=== PATIENT | male | born 1970 | race Caucasian/White ===

== ENCOUNTER 2019-08-13 13:06 | Emergency (ER) | payer OTHER, SELFPAY ==
[2019-08-13 13:06] VITALS: BP 115/73; PULSE 76; RESP 18; TEMP 36.6; O2SAT 97; BMI 31.7
--- NOTE | 2019-08-13 13:16 | EKG12_ITS ---
Test Reason : CP Blood Pressure : / mmHG Vent. Rate : 069 BPM Atrial Rate : 069 BPM P-R Int : 158 ms QRS Dur : 094 ms QT Int : 388 ms P-R-T Axes : 033 -20 014 degrees QTc Int : 415 ms Normal sinus rhythm Normal ECG Confirmed by JANINA WHITMORE ([id number]), electronic news gathering editor HARLEEN BOOKER ([id number]) on 08/18/2019 9:23:01 AM Referred By: LISET Confirmed By:JANINA WHITMORE
[2019-08-13 13:28] LABS: Absolute Lymphocyte Count 1.64 X10^3/uL (0.83-4.51); Absolute Neutrophil Count 5.9 X10^3/uL (2.0-7.7); Basophil# 0.02 X10^3/uL; Basophil% 0.2 % (0-1); Eosinophil# 0.02 X10^3/uL; Eosinophils% 0.2 % (0-5); Hematocrit 46.7 % (40-54); Hemoglobin 15.9 g/dL (13.0-16.5); Lymphocyte # 1.64 X10^3/ul (4.0); Lymphocyte % 19.7 % (19-41); Mean Corpuscular Hgb 31.1 pg (27.0-32.0); Mean Corpuscular Volume 91.2 fL (80-94); Monocyte% 8.4 % (0-10); NRBC Flagged by Analyzer 0 % (0-5); Neutrophil # 5.92 X10^3/uL (2.7-7.7); Neutrophil % 71.1 % (47-70); Platelet Count 209 K/mm3 (150-450); RBC Distribution Width CV 12.4 % (11.6-14.6); RBC Distribution Width SD 41.4 fl (35.1-43.9); Red Blood Count 5.12 M/mm3 (4.6-6.2); White Blood Count 8.3 K/mm3 (4.4-11.0)
--- NOTE | 2019-08-13 13:31 | RAD_ITS ---
STUDY: X-RAY CHEST REASON FOR EXAM: Male, 49 years old. Chest pain. TECHNIQUE: PA and lateral views of the chest. COMPARISON: None. FINDINGS: EKG electrodes are seen. The lungs are clear and expanded. Scattered calcified granulomas. There is no demonstrated pleural abnormality. Normal size heart. Normal mediastinum and deion. Normal visualized pulmonary arteries. Normal visualized aortic arch and descending thoracic aorta. Normal visualized thoracic spine. Normal visualized ribs, clavicles, and shoulders. There is no demonstrated abnormality of the visualized soft tissue structures of the upper abdomen. RAD/Chest PA and Lateral IMPRESSION: Normal x-ray examination of the chest. Electronically Signed: Kevin Conde, at 14:21 EST , Service support ,
--- NOTE | 2019-08-13 13:41 | ED.VIS.GEN ---
History of Present Illness Chief Complaint: Chest Pain Informant: Patient Onset: Yesterday Context: Sudden Onset Timing: Lasts - 30 seconds Current Severity: - Maximum Severity: Moderate - Gone Narrative: The patient presents to the emergency department at referral from his primary care physician. The patient was in his normal state of health. He states last night, he had sudden onset substernal chest heaviness that lasted about 30 seconds. He states he felt mildly nauseated and short of breath. He states it did not radiate to his neck or to his arm. He is never had pain like this before. He is not currently on any medications. He does admit to family history of heart disease, but no history himself. He denies any exertional chest pain, recent travel, or history of pulmonary embolus. He is otherwise been in his normal state of health. Prior similar symptoms: No Recent Illness/Hospitalization: No Past Medical History - Allergies and Home Meds Allergies/Adverse Reactions: Allergies No Known Allergies Allergy (Verified 08/13/19 13:09) Primary Care Physician: Carlos Donovan III, MD [Primary Care Provider] - Prior records reviewed: Yes Past Medical History: None Surgical History: noncontributory Smoking Status: Former smoker Review of Systems General: Denies: Chills, Fever, Sweats Eyes: Denies: Visual changes - bilaterally, Diplopia ENT: Denies: Rhinorrhea, Sore throat Cardiovascular: Reports: Chest pain. Denies: Palpitations Respiratory: Denies: Dyspnea, Cough, Dyspnea on exertion Gastrointestinal: Denies: Abdominal pain, Nausea, Vomiting, Diarrhea, Melena, Hematochezia Genitourinary: Denies: Dysuria, Hematuria, Frequency Musculoskeletal: Denies: Back pain, Extremity Pain Skin: Denies: Rash, Wounds Neurological: Denies: Headache, Weakness, Numbness Physical Exam Vital Signs/Narrative: Vital Signs Temp Pulse Resp BP Pulse Ox 08/13/19 13:06 97.8 F 76 18 115/73 97 Inital Vital Signs reviewed: Yes General: Well nourished, Well developed, No Acute Distress Head: Normocephalic, Atraumatic Eyes: Perrl, EOMI ENT: Moist mucous membranes, No rhinorrhea Neck: Supple, Nontender Cardiovascular: Regular rate, Regular rhythm, No murmurs Respiratory: No distress, CTA bilaterally, Chest nontender Abdomen: Soft, Nontender, Nondistended, Normal bowel sounds Back: Nontender, Normal Inspection Extremities: Nontender, No edema Skin: Normal color, No rash Neurological: Alert, Oriented x3, Cranial nerves II-XII grossly intact, Normal Strength, Normal Sensation Psychological: Normal affect, Normal Mood Diagnostic/Tx/Re-eval Chest X-Ray - ED: 2 View, Normal, Heart, Lungs, Mediastinum, Bony Structures, No Infiltrates Clinical Impression(s) from Imaging Studies Chest X-Ray 08/13/19 13:31 IMPRESSION: Normal x-ray examination of the chest. Electronically Signed: Kevin Conde, at 14:21 EST , Service support , Abnormal Lab Results 08/13/19 08/13/19 13:20 13:20 WBC 8.3 RBC 5.12 Hgb 15.9 Hct 46.7 MCV 91.2 MCH 31.1 MCHC 34.0 RDW Std Deviation 41.4 RDW Coeff of Jelena 12.4 Plt Count 209 MPV 11.0 Immature Gran % (Auto) 0.400 Neut % (Auto) 71.1 H Lymph % (Auto) 19.7 [place] % (Auto) 8.4 Eos % (Auto) 0.2 Baso % (Auto) 0.2 Absolute Neuts (auto) 5.9 Absolute Lymphs (auto) 1.64 Nucleated RBC % 0 Sodium 139 Potassium 3.7 Chloride 107 Carbon Dioxide 25.0 Anion Gap 7 BUN 19 H Creatinine 1.15 Estim Creat Clear Calc 78.56 Est GFR (MDRD) Af Amer 87 Est GFR (MDRD) Non-Af 72 BUN/Creatinine Ratio 16.5 Glucose 91 Calcium 9.0 Troponin I < 0.015 - Rhythm Strip Rhythm Strip: Sinus Rhythm Rate: 80 Ectopy: None - EKG Initial EKG Interpretation: Sinus Rhythm, No Acute Injury Pattern Prior: No Prior - Medical Decision Making The patient presents to the emergency department with approximately 30 seconds of substernal chest pain that woke him from sleep. His pain is totally resolved. He denies any exertional tightness, exertional dyspnea, orthopnea, or leg swelling. He is never had pain like this before. His symptoms do seem atypical. EKG was obtained which showed no acute ischemia. Chest x-ray shows normal cardiac silhouette, no enlarged mediastinum, or other dangerous process. Initial cardiac enzymes are normal. The patient is low risk but not no risk. He was agreeable with a 3-hour troponin as his heart score is only 2. His repeat cardiac enzymes are normal. At this point time I do feel he is safe for outpatient follow-up for stress testing. He agrees with this plan of care and will return with any worsening symptoms. Impression 1. Chest pain ED Disposition - Plan for ED Patient: Instructions: CHEST PAIN, Uncertain Cause Referrals: Carlos Donovan III, MD [Primary Care Provider] -
[2019-08-13 13:45] LABS: Anion Gap 7 (5-15); BUN 19 mg/dL (7-18); BUN/Creat Ratio 16.5 RATIO (10-20); Chloride 107 mmol/L (98-107); Creatinine, Serum 1.15 mg/dL (0.70-1.30); EST Glomerular Filtration Rate 72 mL/min (>60); Est Glom Filt Rate - Afr Amer 87 mL/min (>60); Estimated Creatinine Clearance 78.56 ml/min; Glucose 91 mg/dL (74-106); Potassium 3.7 mmol/L (3.5-5.1); Sodium Level 139 mmol/L (136-145)
--- NOTE | 2019-08-13 14:03 | ED.RN ---
PATIENT STATES THAT HE TOOK PAIN EASE PRIOR TO COMING TO ED. INGREDIENTS LISTED 250 MG ASA PER TABLET. PATIENT TOOK TWO TABLETS.
[2019-08-13 14:06] VITALS: BP 116/82; PULSE 69; RESP 18; O2SAT 98
[2019-08-13 16:12] VITALS: BP 120/79; PULSE 65; RESP 17; O2SAT 97
[2019-08-13 16:57] VITALS: BP 120/66; PULSE 56; RESP 18; O2SAT 98
== END 2019-08-13 16:58 | disposition home or self-care (01) ==
LOC: ED 13:34
PROVIDERS: Emergency Provider Emergency Medicine; Family Provider Family Medicine; PCP Family Medicine
DX: R07.9 Chest pain, unspecified (principal); R06.02 Shortness of breath; R11.0 Nausea; Z82.49 Family history of ischemic heart disease and other diseases of the circulatory system; Z87.891 Personal history of nicotine dependence
CPT/HCPCS: 71046; 80048; 84484; 85025; 93005; 99285; A4216

== ENCOUNTER → 2021-06-14 | Outpatient (CLI) | payer OTHER, SELFPAY | END | disposition home or self-care (01) | LOC: LABSPEC 07:46 | PROVIDERS: PCP Family Medicine; Referring Provider Physician Assistant; Visit Provider Physician Assistant | DX: U07.1 COVID-19 (principal) | CPT/HCPCS: 87635; U0005; U0003 ==

== ENCOUNTER 2021-11-19 14:48 | Emergency (ER) | payer OTHER, SELFPAY ==
[2021-11-19 14:49] VITALS: BP 144/90; PULSE 82; RESP 18; TEMP 37; O2SAT 97; BMI 30.1
--- NOTE | 2021-11-19 15:29 | EKG12_ITS ---
Test Reason : CP Blood Pressure : / mmHG Vent. Rate : 072 BPM Atrial Rate : 072 BPM P-R Int : 164 ms QRS Dur : 096 ms QT Int : 372 ms P-R-T Axes : 040 -12 020 degrees QTc Int : 407 ms Normal sinus rhythm Normal ECG Confirmed by ALVERTO BEE MD ([id number]), medical transcription editor LITO SHEIKH ([id number]) on 11/22/2021 11:00:57 AM Referred By: NANCY/JESSE Confirmed By:ALVERTO BEE MD
--- NOTE | 2021-11-19 15:35 | RAD_ITS ---
STUDY: X-RAY CHEST REASON FOR EXAM: Male, 51 years old. chest pain TECHNIQUE: Single AP portable view of the chest. COMPARISON: 08/13/2019 FINDINGS: The lungs are clear and expanded. There is no demonstrated pleural abnormality. Normal size heart. Normal mediastinum and deion. Normal visualized pulmonary arteries. Normal visualized aortic arch and descending thoracic aorta. Normal visualized thoracic spine. Normal visualized ribs, clavicles, and shoulders. There is no demonstrated abnormality of the visualized soft tissue structures of the upper abdomen. RAD/Chest 1 View (Portable) IMPRESSION: Normal x-ray examination of the chest. Electronically Signed: Erwin Hardy MD at 15:51 EST ,
--- NOTE | 2021-11-19 15:45 | ED.VIS.CHEST ---
HPI History of Present Illness Chief Complaint: Chest Pain Informant: patient Onset/Context/Timing Onset: Today Activity at onset: sudden Timing: Intermittent and Lasts (Few seconds) Quality: Positive for Sharp Location: Left Parasternal Worsened By: Nothing Relieved By: Nothing Associated Symptoms: Positive for Cough and Acid Reflux; Negative for Nausea, Vomiting, Diaphoresis, Dyspnea, Fever, Lightheadedness and Palpitations Narrative Narrative: Patient presents with chest pain that has been intermittent today. Patient states it is also been intermittent over the past couple days but it is more frequent today. Patient states that last a few seconds when it comes on. Patient describes it as sharp. Patient states the pain is over the left parasternal area. Patient states he has had occasional pain in his left arm. Patient describes his arm pain as aching. Patient admits to a mild cough. Patient also admits to some reflux symptoms. Patient denies any nausea or vomiting. Patient denies any shortness of breath or diaphoresis. CVD Risk Factors: Negative for Hypertension, Diabetes, Hypercholesterolemia, Family History 1' </=55 and Smoking PE Risk Factors: Negative for Recent Travel/Surgery, Recent Immobilization, Prior DVT or PE, Cancer and OCP + Smoking + >/=35 PFSH PFSH Medical History no medical history no medical history Home Medications NK 08/13/19 [History Last Taken Unknown] Allergy/AdvReac Type Severity Reaction Status Date / Time No Known Allergies Allergy Verified 11/19/21 14:50 Surgical History History of herniorrhaphy Social History Smoking Status: Never smoker ROS ROS ED Constitutional Constitutional ED: Denies chills or fever(s) Eyes Eyes: Denies blurry vision or change in vision ENT ENT ED: Denies rhinorrhea or sore throat Cardiovascular Cardiovascular: Reports chest pain; Denies palpitations Respiratory/Chest Respiratory/Chest: Reports cough; Denies dyspnea Gastrointestinal Gastrointestinal: Reports nausea; Denies abdominal pain or vomiting Genitourinary Genitourinary ED: Denies dysuria or hematuria Musculoskeletal Musculoskeletal: Reports neck pain; Denies back pain Integumentary Denies abscess or rash Neurologic Neurologic: Reports headache(s); Denies weakness Allergic/Immunologic Allergic/Immunologic ED: Denies mouth swelling or urticaria EXAM Physical Exam Const Vital Signs: 11/19/21 14:49 11/19/21 15:52 11/19/21 15:53 Temperature 98.6 F Temperature Source Temporal Pulse Rate 82 74 Respiratory Rate 18 19 H Respiratory Effort Respiratory Pattern Blood Pressure 144/90 H 141/84 H Blood Pressure Mean 108 103 Pulse Ox 97 95 Oxygen Delivery Method Room Air Room Air Room Air 11/19/21 15:54 11/19/21 16:00 11/19/21 18:00 Temperature Temperature Source Pulse Rate 74 57 L Respiratory Rate 19 H 16 Respiratory Effort Normal Respiratory Pattern Normal Blood Pressure 141/84 H 147/84 H Blood Pressure Mean 103 105 Pulse Ox 95 97 Oxygen Delivery Method Room Air Room Air Positive well nourished and well developed General Appearance ED: well developed and NAD HEENT normocephalic and atraumatic Eyes PERRL and EOMs intact bilaterally Neck supple and no JVD Chest Wall palpation of chest normal Resp normal respiratory effort and clear to auscultation bilaterally Effort and Inspection: Negative for respiratory distress Cardio regular rate, regular rhythm and no murmurs GI normal to inspection, nondistended, normoactive bowel sounds, soft to palpation, non-tender and non-distended Extremity normal to inspection General Extremety ED: Negative for edema or tenderness General Extremity: Negative for edema Neuro oriented x3, CN's II-XII intact bilaterally and no sensory deficits noted Sensorium / Orientation: awake and alert Motor Exam: strength 5/5 throughout Psych mental status grossly normal Heart Score History: Slightly/Non-Suspicious ECG: Normal Age: >45 - <65 years Risk Factors: No Risk Factors Troponin: </= Normal Limit Score: 1 MDM MDM MDM Narrative Medical decision making narrative: Patient was given aspirin here. EKG was obtained. On my interpretation, it showed a normal sinus rhythm with a rate of 72. [place] interval, QRS interval, and QTc intervals were all normal. [place] was normal. There are no acute ST or T wave changes. CBC and basic metabolic profile were obtained and were within normal limits. PT with INR was within normal limits. Initial high-sensitivity troponin was normal at 5. 2-hour repeat high-sensitivity troponin was unchanged at 5. Portable 1 view chest x-ray was obtained. On my interpretation, lung duran are clear. There is normal cardiac silhouette. Bony thorax is normal. There is no acute process noted. Radiologist also interpreted the x-ray and agrees. Patient has a HEART score of 1. Patient was advised that this is low risk for acute cardiac event. Patient was instructed to follow-up with his primary care physician in 5 to 7 days for reevaluation. Patient understands and is agreeable with the plan. Patient was instructed return if worse in any way. All questions were answered. Lab Data Attestation: I reviewed the patient's lab results. Labs: Laboratory Results - last 24 hr 11/19/21 11/19/21 11/19/21 15:40 15:40 15:40 WBC 7.6 RBC 5.05 Hgb 16.1 Hct 46.0 MCV 91.1 MCH 31.9 MCHC 35.0 RDW Std Deviation 41.5 RDW Coeff of Jelena 12.4 Plt Count 219 MPV 10.4 Immature Gran % (Auto) 0.300 Neut % (Auto) 62.9 Lymph % (Auto) 26.8 [facility] % (Auto) 9.0 Eos % (Auto) 0.7 Baso % (Auto) 0.3 Absolute Neuts (auto) 4.8 Absolute Lymphs (auto) 2.05 Nucleated RBC % 0 PT 13.0 INR 1.0 Sodium 139 Potassium 3.8 Chloride 107 Carbon Dioxide 29.0 Anion Gap 3 L BUN 18 Creatinine 1.15 Estim Creat Clear Calc 79.35 Est GFR (MDRD) Af Amer 86 Est GFR (MDRD) Non-Af 71 BUN/Creatinine Ratio 15.7 Glucose 91 Calcium 9.3 Troponin I High Sens 5 11/19/21 18:04 WBC RBC Hgb Hct MCV MCH MCHC RDW Std Deviation RDW Coeff of Jelena Plt Count MPV Immature Gran % (Auto) Neut % (Auto) Lymph % (Auto) [facility] % (Auto) Eos % (Auto) Baso % (Auto) Absolute Neuts (auto) Absolute Lymphs (auto) Nucleated RBC % PT INR Sodium Potassium Chloride Carbon Dioxide Anion Gap BUN Creatinine Estim Creat Clear Calc Est GFR (MDRD) Af Amer Est GFR (MDRD) Non-Af BUN/Creatinine Ratio Glucose Calcium Troponin I High Sens 5 Radiography Chest X-Ray - ED: 1 View, Read by ED Physician, Read by Radiologist and Normal Diagnostic Testing: Clinical Impression(s) from Imaging Studies Chest X-Ray 11/19/21 15:35 IMPRESSION: Normal x-ray examination of the chest. Electronically Signed: Erwin Hardy MD at 15:51 EST , EKG Initial EKG: Attestation: I personally reviewed and interpreted this EKG as follows: Interpretation: Sinus Rhythm (72) and No Acute Injury Pattern Prior EKG tracings: available for review Prior: Unchanged (08/13/2019) Discharge Plan Triage Chief Complaint: Chest Pain ED Provider: Manav Guevara Dx/Rx/DC Orders Clinical Impression: Chest pain Instructions: ED Chest Pain, Uncertain Cause Prescriptions: No Action NK RF: 0 Primary Care Provider: Care Physician,No Primary Referrals: Colten Garcia MD [STAFF PHYSICIAN] - 5-7 Days Care Physician,No Primary [Primary Care Provider] - Disposition Disposition: Home, Self Care
[2021-11-19 15:53] VITALS: BP 141/84; PULSE 74; RESP 19; O2SAT 95
[2021-11-19 15:56] LABS: Absolute Lymphocyte Count 2.05 X10^3/uL (0.83-4.51); Absolute Neutrophil Count 4.8 X10^3/uL (2.0-7.7); Basophil# 0.02 X10^3/uL; Basophil% 0.3 % (0-1); Eosinophil# 0.05 X10^3/uL; Eosinophils% 0.7 % (0-5); Hemoglobin 16.1 g/dL (13.0-16.5); Lymphocyte # 2.05 X10^3/ul (0.83-4.51); Lymphocyte % 26.8 % (19-41); Mean Corpuscular Hgb 31.9 pg (27.0-32.0); Mean Corpuscular Volume 91.1 fL (80-94); Mean Platelet Vol. 10.4 fl (6.2-12.0); Monocyte# 0.69 X10^3/uL; NRBC Flagged by Analyzer 0 % (0-5); Neutrophil # 4.81 X10^3/uL (2.7-7.7); Neutrophil % 62.9 % (47-70); Platelet Count 219 K/mm3 (150-450); RBC Distribution Width CV 12.4 % (11.6-14.6); RBC Distribution Width SD 41.5 fl (35.1-43.9); Red Blood Count 5.05 M/mm3 (4.6-6.2); White Blood Count 7.6 K/mm3 (4.4-11.0)
[2021-11-19 16:00] VITALS: BP 141/84; PULSE 74; RESP 19; O2SAT 95
[2021-11-19 16:11] LABS: Anion Gap 3 (5-15); BUN 18 mg/dL (7-18); BUN/Creat Ratio 15.7 RATIO (10-20); Calcium,Total 9.3 mg/dL (8.5-10.1); Chloride 107 mmol/L (98-107); Creatinine, Serum 1.15 mg/dL (0.70-1.30); EST Glomerular Filtration Rate 71 mL/min (>60); Est Glom Filt Rate - Afr Amer 86 mL/min (>60); Estimated Creatinine Clearance 79.35 ml/min; Glucose 91 mg/dL (74-106); Potassium 3.8 mmol/L (3.5-5.1); Sodium Level 139 mmol/L (136-145); Troponin-I HS 5 pg/mL (3.0-78.0)
[2021-11-19] MEDS: Aspirin 81 MG TAB.CHEW 324 MG PO (16:43)
[2021-11-19 18:00] VITALS: BP 147/84; PULSE 57; RESP 16; O2SAT 97
[2021-11-19 18:35] LABS: Troponin-I HS 5 pg/mL (3.0-78.0)
[2021-11-19 19:10] VITALS: BP 128/81; PULSE 60; RESP 16; O2SAT 95
== END 2021-11-19 19:11 | disposition home or self-care (01) ==
PROVIDERS: Emergency Provider Emergency Medicine; Visit Provider Emergency Medicine
DX: R07.9 Chest pain, unspecified (principal); K21.9 Gastro-esophageal reflux disease without esophagitis; M79.602 Pain in left arm; M54.2 Cervicalgia; R05.9 Cough, unspecified
CPT/HCPCS: 71045; 80048; 84484; 85025; 85610; 93005; 99285; A4216

== ENCOUNTER 2023-09-05 05:18 | Observation (INO) | payer OTHER, SELFPAY ==
[2023-09-05] VITALS (8 sets, daily range): BP systolic 103–164; BP diastolic 65–88; PULSE 65–83; RESP 16–18; TEMP 36.6–37; O2SAT 93–99; BMI 31.5; BMI 33.5
--- NOTE | 2023-09-05 05:38 | EDS_ITS ---
HPI History of Present Illness Chief Complaint: Abd Pain Informant: patient and spouse/S.O. Narrative Narrative: 53-year-old male states that yesterday around noon he developed an epigastric discomfort radiating to his back. He states most of his discomfort does seem to be in the back. He notes some bloating and some anorexia. He states that he tried to eat some vegetables later in the day but nothing really sounds good. He was unable to get to sleep due to this discomfort. He notes inguinal hernia repair. He denies any known pancreatic or gallbladder disease. PFSH PFSH Home Medications NK 08/13/19 [History Last Taken Unknown] Allergy/AdvReac Type Severity Reaction Status Date / Time No Known Allergies Allergy Verified 09/05/23 05:19 Surgical History History of herniorrhaphy Social History Smoking Status: Never smoker ROS ROS ED Constitutional Constitutional ED: Denies chills, fever(s) or weight loss Eyes Eyes: Denies change in vision or diplopia ENT ENT ED: Denies ear pain, rhinorrhea or sore throat Cardiovascular Cardiovascular: Denies chest pain, orthopnea, palpitations or racing heartbeat Respiratory/Chest Respiratory/Chest: Denies cough, dyspnea or orthopnea Gastrointestinal Gastrointestinal: Reports abdominal pain and nausea; Denies diarrhea or vomiting Genitourinary Genitourinary ED: Denies dysuria, hematuria or urinary frequency Musculoskeletal Musculoskeletal: Reports back pain; Denies arthralgias or myalgias Integumentary Denies abscess or rash Neurologic Neurologic: Denies headache(s) or weakness Psychiatric Psychiatric: Denies anxiety, depression, suicidal ideation or suicidal thoughts Endocrine Endocrinology: Denies polydipsia, polyphagia or polyuria Allergic/Immunologic Allergic/Immunologic ED: Denies mouth swelling, tongue swelling or urticaria EXAM Physical Exam Const Vital Signs: 09/05/23 05:19 09/05/23 06:35 Temperature 98 F Temperature Source Temporal Pulse Rate 75 78 Respiratory Rate 18 16 Blood Pressure 164/88 H 136/75 H Blood Pressure Mean 113 95 Pulse Ox 99 98 Oxygen Delivery Method Room Air Positive well nourished and well developed General Appearance ED: well developed HEENT Reports normocephalic, head/scalp atraumatic and moist mucous membranes Eyes PERRL and EOMs intact bilaterally Neck no lymphadenopathy, supple and no JVD Resp normal respiratory effort and clear to auscultation bilaterally Cardio regular rate, regular rhythm and no murmurs GI Palpation: soft and tender epigastric and RUQ; Negative for splenomegaly or rebound tenderness present Back/Spine no CVA tenderness and normal ROM Extremity normal to inspection General Extremety ED: Negative for edema General Extremity: Negative for edema Neuro oriented x3 and CN's II-XII intact bilaterally Sensorium / Orientation: alert Motor Exam: strength 5/5 throughout Psych mental status grossly normal Mood & Affect: Negative for depressed or tearful Skin no rashes or lesions noted and no wounds MDM MDM MDM Narrative Medical decision making narrative: Bedside ultrasound performed by this physician reveals some mild tenderness over the gallbladder and some cholelithiasis. White count 13.5. Troponin is 9 lipase is 30 liver enzymes with no obstructive pattern. Glucose of 110. Patient received IV fluids morphine and Zofran. This improved his pain but came back. His EKG demonstrates a normal sinus rhythm. I do not believe this to be cardiac in nature. A CT of the abdomen and pelvis was ordered. History & Record Review Discussion w/independent historian: Patient Lab Data Attestation: I reviewed the patient's lab results. Labs: Laboratory Results - last 24 hr 09/05/23 05:45 WBC 13.5 H RBC 4.95 Hgb 15.3 Hct 45.4 MCV 91.7 MCH 30.9 MCHC 33.7 RDW Std Deviation 41.3 RDW Coeff of Jelena 12.4 Plt Count 212 MPV 10.5 Immature Gran % (Auto) 0.400 Neut % (Auto) 86.9 H Lymph % (Auto) 7.7 L [place] % (Auto) 4.7 Eos % (Auto) 0.1 Baso % (Auto) 0.2 Absolute Neuts (auto) 11.8 H Absolute Lymphs (auto) 1.04 Nucleated RBC % 0 Sodium 139 Potassium 4.0 Chloride 108 H Carbon Dioxide 25.0 Anion Gap 6 BUN 17 Creatinine 1.00 Estim Creat Clear Calc 89.22 Est GFR (MDRD) Af Amer 101 Est GFR (MDRD) Non-Af 84 BUN/Creatinine Ratio 17.1 Glucose 110 H Calcium 8.8 Total Bilirubin 0.60 Direct Bilirubin 0.14 AST 20 ALT 27 Alkaline Phosphatase 76 Troponin I High Sens 9 Total Protein 7.1 Albumin 3.6 Globulin 3.5 Lipase 30 EKG Initial EKG: Attestation: I personally reviewed and interpreted this EKG as follows: Comments: Normal sinus rhythm ventricular rate of 69 bpm Discharge Plan Triage Chief Complaint: Abd Pain ED Provider: Jon Leija Dx/Rx/DC Orders Prescriptions: No Action NK Primary Care Provider: Care Physician,No Primary Referrals: Care Physician,No Primary [Primary Care Provider] -
--- NOTE | 2023-09-05 05:41 | EKG12_ITS ---
Test Reason : DYSRHYTHMIA Blood Pressure : / mmHG Vent. Rate : 069 BPM Atrial Rate : 069 BPM P-R Int : 172 ms QRS Dur : 098 ms QT Int : 376 ms P-R-T Axes : 044 -12 026 degrees QTc Int : 402 ms Normal sinus rhythm Possible Left atrial enlargement Incomplete right bundle branch block Borderline ECG Confirmed by ROHIT ROMERO, ALVERTO ([id number]), subeditor BRENDA MCNEILL ([id number]) on 09/12/2023 8:09:03 AM Referred By: Confirmed By:ALVERTO BEE MD
[2023-09-05 05:53] LABS: Absolute Lymphocyte Count 1.04 X10^3/uL (0.83-4.51); Absolute Neutrophil Count 11.8 X10^3/uL (2.0-7.7); Basophil# 0.03 X10^3/uL; Basophil% 0.2 % (0-1); Eosinophil# 0.01 X10^3/uL; Eosinophils% 0.1 % (0-5); Hematocrit 45.4 % (40-54); Hemoglobin 15.3 g/dL (13.0-16.5); Lymphocyte # 1.04 X10^3/ul (0.83-4.51); Lymphocyte % 7.7 % (19-41); Mean Corp Hgb Conc 33.7 g/dL (32-36); Mean Corpuscular Hgb 30.9 pg (27.0-32.0); Mean Corpuscular Volume 91.7 fL (80-94); Mean Platelet Vol. 10.5 fl (6.2-12.0); Monocyte# 0.64 X10^3/uL; Monocyte% 4.7 % (0-10); NRBC Flagged by Analyzer 0 % (0-5); Neutrophil # 11.76 X10^3/uL (2.7-7.7); Neutrophil % 86.9 % (47-70); Platelet Count 212 K/mm3 (150-450); RBC Distribution Width CV 12.4 % (11.6-14.6); RBC Distribution Width SD 41.3 fl (35.1-43.9); Red Blood Count 4.95 M/mm3 (4.6-6.2); White Blood Count 13.5 K/mm3 (4.4-11.0)
[2023-09-05] MEDS: Morphine 4 MG/ML Syringe IV ×2 (05:54→07:07)
[2023-09-05] MEDS: Ondansetron 4 MG/2 ML Vial IV (05:54)
[2023-09-05] MEDS: 0.9% Normal Saline (1000mL) 1,000 ML 1000 ML IV (05:54)
[2023-09-05 06:11] LABS: AST(SGOT) 20 U/L (15-37); Alanine Aminotransfer ALT/SGPT 27 U/L (16-61); Albumin, Serum 3.6 g/dL (3.2-5.0); Alkaline Phosphatase 76 U/L (45-117); Anion Gap 6 (5-15); BUN 17 mg/dL (7-18); BUN/Creat Ratio 17.1 RATIO (10-20); Bilirubin, Direct 0.14 mg/dL (0.00-0.30); Calcium,Total 8.8 mg/dL (8.5-10.1); Chloride 108 mmol/L (98-107); EST Glomerular Filtration Rate 84 mL/min (>60); Est Glom Filt Rate - Afr Amer 101 mL/min (>60); Estimated Creatinine Clearance 89.22 ml/min; Globulin 3.5 g/dL (2.2-4.2); Glucose 110 mg/dL (74-106); Lipase 30 U/L (13-75); Protein, Total 7.1 g/dL (6.4-8.2); Sodium Level 139 mmol/L (136-145); Troponin-I HS 9 pg/mL (3.0-78.0)
--- NOTE | 2023-09-05 06:56 | CT_ITS ---
STUDY: CT ABDOMEN AND PELVIS WITH CONTRAST - URINARY TRACT REASON FOR EXAM: Male, 53 years old. Abdominal pain/back pain RADIATION DOSAGE (If Supplied By Facility): CTDIvol = ( 14.43 ) mGy, DLP = ( 1058.45 ) mGycm TECHNIQUE: IV 100mL Isovue-300 was administered. Transaxial images were obtained from the dome of the diaphragm to the symphysis pubis subsequent to intravenous contrast administration. Multiplanar coronal and sagittal images were reformatted. Individualized Dose Optimization Techniques Were Used For This CT. COMPARISON: No relevant prior comparison study available FINDINGS: There is a right lower lobe granuloma. The visualized portions of the heart are within normal limits. Normal liver. There are multiple gallstones. There is trace pericholecystic fluid. The gallbladder is distended. There is a benign calcified granuloma of the spleen. Normal pancreas. Normal bilateral adrenal glands. Normal visualized stomach. Normal small intestine. There are multiple colonic diverticula consistent with diverticulosis. The appendix is visualized and appears normal. Normal abdominal aorta. No retroperitoneal adenopathy. There is a nonobstructing 5 mm right renal calculus. There is a left renal cyst. Normal urinary bladder. Normal abdominal wall. Normal osseous structures. CT/Abdomen/Pelvis W IV Cont ONLY IMPRESSION: Cholelithiasis associated with a distended gallbladder and pericholecystic fluid, recommend right upper quadrant ultrasound for cannot exclude cholecystitis. Colonic diverticulosis. Nonobstructing 5 mm right renal calculus. Electronically Signed: Nohelia Gonsalez MD at 8:44 EST ,
[2023-09-05] MEDS: 0.9% Normal Saline (1000mL) 1,000 ML 125 ML IV (07:07)
--- NOTE | 2023-09-05 08:49 | US_ITS ---
INDICATION: Right upper quadrant pain EXAMINATION: Ultrasound US Abdomen Limited (quadrant) TECHNIQUE: Chong scale and color doppler imaging was performed of the right upper quadrant. COMPARISON: CT dated September 05, 2023 FINDINGS: LIVER: There is normal echotexture. No focal hepatic lesion. There is no free fluid. GALLBLADDER AND BILIARY TREE: There are stones and sludge within a distended gallbladder. There is a questionable calculus within the neck of the gallbladder or cystic duct. A sonographic Sauceda''s sign was not documented by the global recruiter. The proximal common bile duct measures 10 mm, which is dilated for the patient''s age. PANCREAS: No focal abnormality is demonstrated in the pancreas. No pancreatic ductal dilatation. RIGHT KIDNEY: The right kidney measures 12 cm in length and is within normal limits. US/Gallbladder IMPRESSION: Dilated common bile duct. Calculi and sludge within a distended gallbladder. Possible calculus within the neck of the gallbladder or the cystic duct, consider MRCP for further characterization. Electronically Signed: Nohelia Gonsalez MD at 11:08 EST ,
--- NOTE | 2023-09-05 11:51 | PCM.HP.STD ---
HPI - General General Date of Service: 09/05/23 HPI Narrative ALMA ROSA JAMES, is a 53 M who presents to the ER due to epigastric pain. Patient states pain started midday yesterday with continued to get worse. Patient did not have anything after about 730 last night. Patient states in hindsight he may have had some similar pain but not quite as bad in the past. Patient had CAT scan which showed multiple gallstones at the neck of the gallbladder questionable trace pericholecystic fluid, patient's ultrasound showed again multiple stones near the neck of the gallbladder wall was 2.3 mm by text exam, negative Sauceda's, no pericholecystic fluid, possibly dilated common bile duct. Patient did have normal LFTs with a white blood cell count of 13 with a left shift. Patient denies any previous abdominal surgeries or home medications. Patient does state that he does have reflux but does not take any current medications for that. [facility] Home Medications NK 08/13/19 [History Last Taken Unknown] Allergy/AdvReac Type Severity Reaction Status Date / Time No Known Allergies Allergy Verified 09/05/23 05:19 Surgical History History of herniorrhaphy Social History Smoking Status: Never smoker ROS Constitutional Constitutional: Reports anorexia; Denies fever(s) Eyes Eyes: Denies change in vision ENT HEENT: Denies dysphagia Cardiovascular Cardiovascular: Denies palpitations Respiratory/Chest Respiratory/Chest: Denies cough Gastrointestinal Gastrointestinal: Reports abdominal pain and nausea; Denies constipation, hematemesis or vomiting Genitourinary Genitourinary: Denies dysuria Musculoskeletal Musculoskeletal: Denies joint swelling Integumentary Integumentary: Denies jaundice Neurologic Neurologic: Denies focal weakness Psychiatric Psychiatric: Denies depression Hematologic/Lymphatic Hematologic/Lymphatic: Denies easy bleeding Vital Signs Vital Signs Vital Signs: 09/05/23 05:19 09/05/23 06:35 09/05/23 08:39 Temperature 98 F Temperature Source Temporal Pulse Rate 75 78 83 Respiratory Rate 18 16 16 Blood Pressure 164/88 H 136/75 H 127/78 H Blood Pressure Mean 113 95 94 Pulse Ox 99 98 93 Oxygen Delivery Method Room Air Room Air Weight Weight: 220 lb Body Mass Index (BMI) 31.5 Physical Exam Const alert, oriented x3 and no apparent distress HEENT normocephalic and head/scalp atraumatic Resp normal respiratory effort Cardio regular rate GI soft to palpation; Negative for non-distended Palpation: Negative for tender or guarding Extremity no clubbing, cyanosis or edema Neuro CN's II-XII intact bilaterally Psych mental status grossly normal Results Lab / Micro Data 09/05/23 05:45 09/05/23 05:45 Labs: Laboratory Results - last 24 hr 09/05/23 05:45: WBC 13.5 H, RBC 4.95, Hgb 15.3, Hct 45.4, MCV 91.7, MCH 30.9, MCHC 33.7, RDW Std Deviation 41.3, RDW Coeff of Jelena 12.4, Plt Count 212, MPV 10.5, Immature Gran % (Auto) 0.400, Neut % (Auto) 86.9 H, Lymph % (Auto) 7.7 L, [place] % (Auto) 4.7, Eos % (Auto) 0.1, Baso % (Auto) 0.2, Absolute Neuts (auto) 11.8 H, Absolute Lymphs (auto) 1.04, Nucleated RBC % 0, Sodium 139, Potassium 4.0, Chloride 108 H, Carbon Dioxide 25.0, Anion Gap 6, BUN 17, Creatinine 1.00, Estim Creat Clear Calc 89.22, Est GFR (MDRD) Af Amer 101, Est GFR (MDRD) Non-Af 84, BUN/Creatinine Ratio 17.1, Glucose 110 H, Calcium 8.8, Total Bilirubin 0.60, Direct Bilirubin 0.14, AST 20, ALT 27, Alkaline Phosphatase 76, Troponin I High Sens 9, Total Protein 7.1, Albumin 3.6, Globulin 3.5, Lipase 30 Imagaing Radiology Impression Abdomen/Pelvis CT 09/05/23 06:56 IMPRESSION: Cholelithiasis associated with a distended gallbladder and pericholecystic fluid, recommend right upper quadrant ultrasound for cannot exclude cholecystitis. Colonic diverticulosis. Nonobstructing 5 mm right renal calculus. Electronically Signed: Nohelia Gonsalez MD at 8:44 EST , Gallbladder Ultrasound 09/05/23 08:49 IMPRESSION: Dilated common bile duct. Calculi and sludge within a distended gallbladder. Possible calculus within the neck of the gallbladder or the cystic duct, consider MRCP for further characterization. Electronically Signed: Nohelia Gonsalez MD at 11:08 EST , Assessment & Plan Assessment/Plan (1) Acute cholecystitis due to biliary calculus: (2) GERD (gastroesophageal reflux disease): PLAN: Plan Reviewed the anatomy with the patient and discussed the procedure with the patient and his : laparoscopic cholecystectomy with possible cholangiograms, possible open. Review risks including but not limited to bleeding, infection, hernia, bile leak, retained gallstones requiring another procedure ERCP- Endoscopic Retrograde Cholangiopancreatography, injury to another organ (bile ducts, common bile duct, small bowel, etc.) and conversion to an open procedure. All questions were answered. Admit, n.p.o. Pain control PPI due to history of reflux Lizet Avelar M.D. Pager: [phone] [facility] [place] [facility] [address] [place] [address], [address] [place] [address] Office: [phone]
--- NOTE | 2023-09-05 12:01 | NURSING ---
MED SURG ROBOTHAM ACUTE CHOLECYSTITIS
[2023-09-05] MEDS: Piperacil/Tazobactam 3.375 GM in 0.9% Normal Saline (50mL MB+) 50 ML IV ×3 (12:10→22:19)
[2023-09-05] MEDS: Morphine 2 MG/ML Syringe IV (14:44)
[2023-09-05] MEDS: Pantoprazole Sodium 40 MG in 0.9% Normal Saline (100mL MB+) 100 ML 330 MG IV (14:57)
[2023-09-05] MEDS: 0.9% Normal Saline (1000mL) 1,000 ML 120 ML IV ×2 (16:17→22:19)
[2023-09-05] MEDS: Acetaminophen 325 MG Tablet 650 MG PO (17:59)
[2023-09-06] VITALS (9 sets, daily range): BP systolic 106–143; BP diastolic 59–86; PULSE 62–88; RESP 16–20; TEMP 36.2–36.7; O2SAT 94–98; BMI 33.5
[2023-09-06] MEDS: Piperacil/Tazobactam 3.375 GM in 0.9% Normal Saline (50mL MB+) 50 ML IV ×2 (06:06→16:01)
[2023-09-06] MEDS: Acetaminophen 325 MG Tablet 650 MG PO (06:06)
[2023-09-06] MEDS: 0.9% Normal Saline (1000mL) 1,000 ML 120 ML IV (06:06)
--- NOTE | 2023-09-06 07:20 | PN.SURG_ITS ---
Subjective Subjective Denies any abdominal pain Objective Data Objective Data Vital Signs: Vital Signs Temp Pulse Resp BP Pulse Ox O2 Del Method 97.7 F L 62 16 106/59 L 94 Room Air 09/06/23 03:37 09/06/23 03:37 09/06/23 03:37 09/06/23 03:37 09/06/23 03:37 09/06/23 03:37 Oxygen Delivery Method Room Air Weight: 227 lb 8.273 oz Body Mass Index (BMI) 33.5 Intake & Output: Intake and Output for Last 24 Hours 09/04/23 09/05/23 09/06/23 23:59 23:59 23:59 Intake Total 3034 / 3034 984 / 984 Balance 3034 / 3034 984 / 984 Lab / Micro Data 09/05/23 05:45 09/05/23 05:45 Radiography Diagnostic Testing: Radiology Impression Abdomen/Pelvis CT 09/05/23 06:56 IMPRESSION: Cholelithiasis associated with a distended gallbladder and pericholecystic fluid, recommend right upper quadrant ultrasound for cannot exclude cholecystitis. Colonic diverticulosis. Nonobstructing 5 mm right renal calculus. Electronically Signed: Nohelia Gonsalez MD at 8:44 EST , Gallbladder Ultrasound 09/05/23 08:49 IMPRESSION: Dilated common bile duct. Calculi and sludge within a distended gallbladder. Possible calculus within the neck of the gallbladder or the cystic duct, consider MRCP for further characterization. Electronically Signed: Nohelia Gonsalez MD at 11:08 EST , Physical Exam Const oriented x3 and no apparent distress Resp normal respiratory effort Cardio regular rate GI soft to palpation and non-tender Inspection: Negative for abdominal distention Assessment & Plan Assessment/Plan (1) Acute cholecystitis due to biliary calculus: (2) GERD (gastroesophageal reflux disease): PLAN: Plan Laparoscopic cholecystectomy today. Reviewed the anatomy with the patient and discussed the procedure with the patient and his : laparoscopic cholecystectomy with possible cholangiograms, possible open. Review risks including but not limited to bleeding, infection, hernia, bile leak, retained gallstones requiring another procedure ERCP- Endoscopic Retrograde Cholangiopancreatography, injury to another organ (bile ducts, common bile duct, small bowel, etc.) and conversion to an open procedure. All questions were answered. Lizet Avelar M.D. Pager: [phone] [facility] [address] [place] [address] [address] [place] [id number] Office: [phone]
[2023-09-06 07:23] LABS: Absolute Lymphocyte Count 1.44 X10^3/uL (0.83-4.51); Absolute Neutrophil Count 4.9 X10^3/uL (2.0-7.7); Basophil# 0.01 X10^3/uL; Basophil% 0.1 % (0-1); Eosinophil# 0.07 X10^3/uL; Hematocrit 42.3 % (40-54); Hemoglobin 13.9 g/dL (13.0-16.5); Lymphocyte # 1.44 X10^3/ul (0.83-4.51); Lymphocyte % 20.3 % (19-41); Mean Corp Hgb Conc 32.9 g/dL (32-36); Mean Corpuscular Hgb 30.4 pg (27.0-32.0); Mean Corpuscular Volume 92.6 fL (80-94); Mean Platelet Vol. 10.9 fl (6.2-12.0); Monocyte# 0.66 X10^3/uL; Monocyte% 9.3 % (0-10); NRBC Flagged by Analyzer 0 % (0-5); Neutrophil # 4.88 X10^3/uL (2.7-7.7); Neutrophil % 68.9 % (47-70); Platelet Count 208 K/mm3 (150-450); RBC Distribution Width CV 12.7 % (11.6-14.6); RBC Distribution Width SD 43.2 fl (35.1-43.9); Red Blood Count 4.57 M/mm3 (4.6-6.2); White Blood Count 7.1 K/mm3 (4.4-11.0)
[2023-09-06 07:56] LABS: AST(SGOT) 17 U/L (15-37); Alanine Aminotransfer ALT/SGPT 21 U/L (16-61); Albumin, Serum 3.1 g/dL (3.2-5.0); Alkaline Phosphatase 65 U/L (45-117); Anion Gap 3 (5-15); BUN 14 mg/dL (7-18); BUN/Creat Ratio 12.8 RATIO (10-20); Bilirubin, Direct 0.25 mg/dL (0.00-0.30); Calcium,Total 8.7 mg/dL (8.5-10.1); Chloride 110 mmol/L (98-107); Creatinine, Serum 1.09 mg/dL (0.70-1.30); EST Glomerular Filtration Rate 75 mL/min (>60); Est Glom Filt Rate - Afr Amer 91 mL/min (>60); Estimated Creatinine Clearance 79.28 ml/min; Globulin 3.3 g/dL (2.2-4.2); Glucose 94 mg/dL (74-106); Potassium 3.5 mmol/L (3.5-5.1); Protein, Total 6.4 g/dL (6.4-8.2); Sodium Level 140 mmol/L (136-145)
[2023-09-06] MEDS: Pantoprazole Sodium 40 MG in 0.9% Normal Saline (100mL MB+) 100 ML 330 MG IV (10:12)
--- NOTE | 2023-09-06 12:20 | RAD_ITS ---
EXAM: FL CHOLANGIOGRAPHY AND/OR PANCREATOGRAPHY CLINICAL INDICATION: TECHNIQUE: Cine fluoroscopic images of the upper abdomen obtained at the time of laparoscopic cholecystectomy. Contrast injected via the cystic duct. COMPARISON: No relevant prior studies available. FINDINGS: Normal-appearing biliary tree. No filling defects to indicate retained stone. There is visualization of the duodenum. See operative note for additional information. RAD/Cholangiogram/ O R,Initial IMPRESSION: Normal operative cholangiogram. Electronically Signed: Markie Reed MD at 16:58 EST ,
[2023-09-06] MEDS: Lactated Ringers 1,000 ML 15 ML IV ×2 (12:23→14:55)
--- NOTE | 2023-09-06 13:20 | GALL_PTH ---
PATHOLOGY RESULTS PATIENT: ALMA ROSA JAMES LOC: MS3 U#:[id number] AGE/SX: 53/M [place]OM[place] [facility] [place]: Dr. Lizet Avelar MD : 1970 BED: 1 DIS: 09/06/2023 SPEC #: [id number] RECD: 09/07/23 07:32 STATUS: BRENDA RONNIE #: [id number] MAYKEL: 09/06/23 13:[address]: Lizet Avelar DEPT: SURGICAL PATHOLOGY RECD BY: Lisa Omalley ENTERED: 09/07/23 07:32 SP TYPE: LEXY GARVIN DR: No Primary Care Phys Tissues: Gallbladder, NOS Procedures: Surgery Specimen Level III HEADER OPERATION: Laparoscopic cholecystectomy with IOC PRE-OP DIAGNOSIS: Acute cholecystitis due to biliary calculus TISSUE SUBMITTED: Gangrenous gallbladder MICROSCOPIC DIAGNOSIS Gallbladder, cholecystectomy: Chronic cholecystitis with focal acute cholecystitis Cholelithiasis. AM:anhsu 09/08/2023 COMMENT Case has been reviewed in consultation with Dr. Gutierrez who concurs with the above diagnosis. IDC:ROHIT MICROSCOPIC DESCRIPTION Slides are reviewed. GROSS DESCRIPTION Received is one container labeled with the patient's name and designated gangrenous gallbladder. The specimen consists of a gallbladder measuring 10.5 cm in length and up to 4.5 cm in diameter. The external surface is pink-berger, smooth and glistening for the most part. Focally it is granular, hemorrhagic and contains cautery artifact. The gallbladder contains a small amount of green-yellow mucoid bile. Present in the gallbladder are five multifaceted, greenish stones measuring in aggregate 4.0 x 3.0 x 1.0 cm and 1.0 to 1.8 cm in greatest dimension. The mucosa is bile-stained and without any mass lesions. The gallbladder wall measures up to 0.3 cm in thickness. Shake Cutter sections from the gallbladder and the cystic duct are submitted in one cassette. / ROHIT:anshu 09/07/2023 TC:2 CPT: 07298
[2023-09-06] MEDS: Bupivacaine Mpf 0.5% 30 ML VIAL (15:17)
--- NOTE | 2023-09-06 15:19 | PCM.OPRPT ---
Report of Operation Date of Procedure: 09/06/23 Pre-Operative Diagnosis: Acute cholecystitis, cholelithiasis Post-Operative Diagnosis: Acute gangrenous cholecystitis, cholelithiasis Surgery/Procedure Performed:: Laparoscopic cholecystectomy with cholangiograms Surgeon: Lizet Avelra Anesthesiologist: Hilton Mccoy Special Medications: Zosyn 3.375 g IV every 8 hours for acute cholecystitis Specimen's removed: Gallbladder and stones Estimated Blood Loss (mL): 30 Description of Procedure: Indications: this is a 53 year-old male who developed abdominal pain/nausea/vomiting and on workup was found to have acute cholecystitis, cholelithiasis, with a normal common bile duct. Laparoscopic cholecystectomy was elected. Description procedure: The patient was placed on operating table in supine position. A timeout was completed verifying correct patient, procedure, site, position and special equipment prior to beginning procedure. General Anesthesia was induced. The abdomen was prepped and draped in usual sterile fashion. An incision was made in the natural skin line above the umbilicus. The fascia was elevated and incised. The peritoneum was elevated and incised. Entry into the peritoneum was confirmed visually and no bowel was noted in the vicinity of the incision. Estevez trocar was placed. The abdomen was insufflated with carbon dioxide to a pressure of 12-15 mmHg. Patient tolerated insufflation well. The laparoscope was then inserted and abdomen inspected. No injuries from initial trocar placement were noted. Additional trochars were then inserted in the following locations 5 mm trocar in the epigastrium and 2 more 5 mm trochars along the right costal margin. The abdomen was inspected no abnormalities were found. The table is placed in reverse Trendelenburg position with the right side up. Patient did have thick rind of adhesions surrounding the lower half of his gallbladder. This was carefully taken down with electrocautery and [place]'s. The dome of the gallbladder was grasped with atraumatic grasper passed through the lateral port and retracted over the dome of the liver. Infundibulum was then grasped with atraumatic grasper through the midclavicular port and retracted to the right lower quadrant. This maneuver exposed Calot's triangle. The peritoneum overlying the gallbladder infundibulum was then incised and cystic duct and artery identified and circumferentially dissected. Paz catheter was used for cholangiograms. The cholangiogram showed good filling of the common bile duct into the duodenum with no filling defects, good filling of the right and left bile ducts as well. The cystic duct was noted to be quite large as it had about a 1.5 cm stone at the neck. The epigastric port site was enlarged to 12 mm trocar to accommodate the 10 mm clips for the cystic duct. The cystic duct and artery were then doubly clipped and divided close to the gallbladder. The gallbladder then dissected from its peritoneal attachments by electrocautery. Hemostasis was checked and the gallbladder and contained stones were removed using the endoscopic retrieval bag through the umbilical port. The gallbladder is passed off table as specimen. The gallbladder fossa was irrigated with saline and hemostasis obtained. There is no evidence of bleeding from the gallbladder fossa or cystic artery leakage of bile from the cystic duct stump. Secondary trochars removed under direct vision. No bleeding was noted the trocar sites. The laparoscope was withdrawn and umbilical trocar removed. The abdomen was allowed to collapse. The fascia of the 12 mm trocars were closed with a [id number] 0 Vicryl suture. The skin was closed with sutures of 4-0 Monocryl and Steri-Strips. The patient was extubated. The patient tolerated procedure well and was taken to the postanesthesia care unit in stable condition. Complications none
--- NOTE | 2023-09-06 15:22 | DCINST_ITS ---
Discharge Instructions Diet Discharge Diet: Light diet - advance as tolerated Activity Discharge Activity: May Not Drive (while taking narcotic pain medications.) May shower in (days): 1 Lifting Restrictions: no lifting >20 lbs x 2 wks, no strenuous exercise for 4 wks Dressing / Incision Call your doctor if your incision/area has: Continuous Slow Oozing, Sudden Increased Bleeding, Increased Pain/ Swelling, Increased Redness, Foul Smelling Discharge and Swelling at the incision site Call your doctor if you observe: Fever of 101 or Higher Remove Dressing in: 2 days Cleanse incision/area with: Soap & Water Additional Dressing/Incision Instructions:: Steri-Strips will fall off in 7 to 10 days, if they do not fall off okay to remove after 10 days. Follow Up Care Please Follow Up With: Lizet Avelar MD When: Call the office for a follow-up appointment 2 weeks; after 5 PM and on the weekends call [phone] with any concerns. Test Results: Test results from this visit will be discussed in further detail at your follow- up appointment, if applicable. Discharge Plan Admission Admit Date/Time: 09/05/23 11:46 Attending Provider: Lizet Avelar Primary Care Provider: Care Physician,Lara Primary Discharge Orders/Prescriptions Prescriptions: New oxycodone-acetaminophen 5-325 mg tablet 1 - 2 tab PO Q6H PRN (Reason: pain) 3 Days Qty: 14 0RF No Action NK Referrals / Follow Up: Care PhysicianLara Primary [Primary Care Provider] - Disposition Disposition (needs filled in before D/C Order can be placed): Home, Self Care
--- OUTSIDE RECORDS SUMMARY | 2023-09-06 19:10 | XMS RPT_ITS | CCD ---
Author Name Unknown Address [address] [place] [address] Organization [facility] Care Team Providers Care Radio Adjuster Name Role Phone Unavailable Primary Care Provider UnavailHiram Bean MD Primary Care Provider [phone] Hiram Barber MD Primary Care Provider [phone] HIRAM BARBER Primary Care Unavailable HIRAM BARBER Primary Care Unavailable HIRAM BARBER Referring Unavailable HIRAM BARBER Primary Care Unavailable HIRAM BARBER Attending Unavailable HIRAM BARBER Referring Unavailable HIRAM BARBER Primary Care Unavailable Medications Completed/Discontinued Medications Medication Drug Class(es) Dates Sig (Normalized) Sig (Original) fluticasone propionate 0.05 mg/actuat metered dose nasal spray (1 source) Corticosteroid Start: 03-19-2020 End: 12-01-2021 take 2 spray(s) by mouth once daily fluticasone (FLONASE) 50 mcg/actuation nasal spray Indications: Post-nasal drainage Use 2 Sprays in each nostril once daily. Rinse mouth after use. 1 Bottle 11 03/19/2020 12/01/2021 Discontinued Problems Problem Classification Problem Date Documented Da te Episodic/Chronic Headache; including migraine (2 sources) Migraine; Translations: [Migraine, unspecified, not intractable, without status migrainosus] Onset: 11-04-2005 11-04-2005 Chronic Immunizations and screening for infectious disease (2 sources) Vaccination needed; Translations: [Encounter for immunization] Episodic Nonspecific chest pain (1 source) Chest pain; Translations: [Chest pain, unspecified] Episodic Other nutritional; endocrine; and metabolic disorders (8 sources) Obese class I; Translations: [Obesity, unspecified] Onset: 12-01-2021 Chronic Other screening for suspected conditions (not mental disorders or infectious disease) (2 sources) Patient encounter status; Translations: [Encounter for screening for malignant neoplasm of prostate] Episodic Results Test Name Value Interpretation Reference Range Facil ity Vital Signs Date Time Vital Sign Value Performing Clinician Faci teena 12-01-2022 15:23-0400 Body height 176.8 cm Hiram Barber MD Work Phone: [facility] 12-01-2022 15:23-0400 Body weight 103.42 kg Hiram Barber MD Work Phone: [facility] 12-01-2022 15:23-0400 Diastolic blood pressure 72 mm[Hg] Hiram Barber MD Work Phone: [facility] 12-01-2022 15:23-0400 Heart rate 80 /min Hiram Barber MD Work Phone: [facility] 12-01-2022 15:23-0400 Respiratory rate 16 /min Hiram Barber MD Work Phone: [facility] 12-01-2022 15:23-0400 Systolic blood pressure 126 mm[Hg] Hiram Barber MD Work Phone: [facility] 12-01-2021 15:37-0400 Body temperature 97.59 [degF] Hiram Barber MD Work Phone: [facility] 12-01-2021 15:37-0400 Body weight 97.98 kg Hiram Barber MD Work Phone: [facility] 12-01-2021 15:37-0400 Diastolic blood pressure 80 mm[Hg] Hiram Barber MD Work Phone: [facility] 12-01-2021 15:37-0400 Heart rate 68 /min Hiram Barber MD Work Phone: [facility] 12-01-2021 15:37-0400 Respiratory rate 18 /min Hiram Barber MD Work Phone: [facility] 12-01-2021 15:37-0400 Systolic blood pressure 124 mm[Hg] Hiram Barber MD Work Phone: [facility] Encounters Encounter Date Encounter Type Care Provider Facility Start: 06-20-2023 End: 06-20-2023 ambulatory HIRAM BARBER Facility:[facility] Start: 06-20-2023 End: 06-20-2023 Nursing evaluation of patient and report Mi Nurse Work Phone: [facility] Procedures Date Procedure Procedure Detail Performing Clinician Start: 12-30-2022 Lipid 1996 panel - S margaret or Plasma Lindsey Older NETWORK DESIGN ARCHITECT.CLINICAL SERVICES CONSULTANT Work Phone: Start: 12-01-2021 Adult depression screening assessment Hiram Barber MD Work Phone: Start: 11-19-2021 BMP - EXTERNAL [facility] Prov ider Plan of Treatment Date Care Activity Detail Author Start: 12-01-2032 Urine microalbumin profile [facility] Start: 12-31-2027 Lipid 1996 panel - S margaret or Plasma Lipid Screening [facility] Start: 12-30-2025 Diabetes Screening Diabetes Screenin g [facility] Start: 12-16-2024 COLOGUARD (FIT-DNA) COLOGUARD (FIT-D NA) [facility] Start: 12-16-2024 COLORECTAL CANCER SCREENING COLORECTAL CANCER SCREENING [facility] Start: 11-19-2024 DIABETES SCREEN DIABETES SCREEN [facility] Start: 06-03-2023 Hepatitis B Vaccine (3 of 3 - 19+ 3-dose series) Hepatitis B Vaccine (3 of 3 - 19+ 3-dose series) [facility] Start: 05-12-2023 Influenza vaccination [facility] Start: 03-10-2023 Influenza vaccination INFLUENZA (#1) [facility] Immunizations Immunization Date Immunization Notes Care Provider Fa cility 06-20-2023 hepatitis B vaccine, adult dosage Mi Nurse Work Phone: [facility] Work Phone: 01-02-2023 hepatitis B vaccine, adult dosage Lindsey Older NETWORK DESIGN ARCHITECT.CLINICAL SERVICES CONSULTANT Work Phone: [facility] Work Phone: 12-01-2022 hepatitis B vaccine, adult dosage Hiram Barber MD Work Phone: [facility] Work Phone: 12-01-2022 tetanus toxoid, redu jacqui diphtheria toxoid, and acellular pertussis vaccine, adsorbed Hiram Barber MD Work Phone: [facility] Work Phone: 12-01-2022 hepatitis B vaccine, unspecified formulation Hiram Barber MD Work Phone: [facility] 03-02-2010 tetanus toxoid, redu jacqui diphtheria toxoid, and acellular pertussis vaccine, adsorbed Hiram Barber MD Work Phone: [facility] Work Phone: Payers Date Payer Category Payer Unknown MMO MMO [employer] [id number] 2019-Present [phone] [address] [place] [id number] PPO [id number] 2019 Unknown 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 MMO [employer] PPO [id number] 2019-Present [phone] [address] [place] [address] PPO [id number] 2019 Unknown [id number] Social History Date Type Detail Facility Start: 04-18-2011 End: 12-01-2022 Tobacco smoking status NHIS Never smoked tobacco [facility] Work Phone: Start: 04-18-2011 Tobacco use and exposure Smoke less tobacco non-user [facility] Work Phone: History of tobacco use Snuff User [facility] Work Phone: Start: 12-01-2021 End: 12-01-2022 Alcohol intake Current drinker of alcohol (finding) [facility] Start: 12-01-2021 End: 11-30-2022 History SDOH Alcohol Frequency 2 [facility] Start: 03-18-2020 End: 12-01-2021 History SDOH Alcohol Std Drinks 1 [facility] Start: 12-01-2021 History SDOH Alcohol Comment rare wine [facility] Start: 03-18-2020 End: 11-30-2022 History SDOH Social Connections Get Together 3 [facility] Start: 03-19-2020 History SDOH Financial 5 [facility] Start: 03-18-2020 Education 21 [facility] Start: 01-20-2014 Tobacco Comment remote snuff u se- 20 years ago. [facility] Start: 1970 Sex Assigned At Not on file [facility] Start: 11-21-2021 End: 12-01-2021 Exposure to SARS-CoV-2 (event) Not sure [facility] Work Phone: Start: 12-01-2022 Tobacco use and exposure Forme r smokeless tobacco user [facility] Work Phone: Start: 11-30-2022 History SDOH Alcohol Std Drinks 98 [facility] Start: 12-01-2022 Tobacco Comment remote snuff u se- 27 years ago. [facility] Start: 11-30-2022 End: 06-20-2023 History of Social function [facility] Start: 11-30-2022 End: 06-20-2023 Social connection and isolation panel [facility] In a typical week, h ow many times do you talk on the telephone with family, friends, or neighbors? Patient refused [facility] Do you belong to any clubs or organizations such as sikh groups, unions, fraternal or athletic groups, or school groups? Yes [facility] How often to you hav e a drink containing alcohol? Monthly or less [facility] How often do you hav e 6 or more drinks on 1 occasion? Never [facility] Do you feel stress - tense, restless, nervous, or anxious, or unable to sleep at night because your mind is troubled all the time - these days [OSQ] Only a little [facility] (I/We) worried wheth er (my/our) food would run out before (I/we) got money to buy more. DK or Refused [facility] In the past 12 month s, was there a time when you were not able to pay the mortgage or rent on time? No [facility] Medical Equipment Procedure Code Equipment Code Equipment Origin al Text Equipment Identifier Dates Mesh Srg Pariete x 6cm Mark Rnd - [id number] Start: 01-28-2014 Clinical Notes 08-19-2013 to 06-20-2023 Maddie Ng LPN - 06/20/2023 3:48 PM EDTTelephone Encounter - Maddie Ng LPN - 05/26/2023 2:33 PM EDTTelephone Encounter - Maddie Ng LPN - 12/19/2022 11:11 AM EDTPatient Instructions Note Date & Type Note Facility 06-20-2023 Note HNO ID: [id number] Author: Maddie Ng LPN Service: ? Author Type: ? Type: Progress Notes Filed: 06/20/2023 3:49 PM Note Text: Patient presents for Hepatitis B vaccine. Denies any problems at this time. Tolerated injection well. Maddie Ng LPN [facility] 06-20-2023 History of Presen t illness Narrative Patient presents for Hepatitis B vaccine. Denies any problems at this time. Tolerated injection well. Maddie Ng LPN documented in this encounter [facility] 05-26-2023 Miscellaneous Notes Formattin g of this note might be different from the original. Patient scheduled for nurse visit 06/05/23 to receive Hepatitis B vaccine. Please place order at this time. Maddie Ng LPN documented in this encounter [facility] 01-02-2023 Note HNO ID: [id number] Author: Maddie Ng LPN Service: ? Author Type: ? Type: Progress Notes Filed: 01/02/2023 3:08 PM Note Text: Patient presents for Hepatitis B vaccine. Denies any problems at this time. Tolerated injection well. Maddie Ng LPN [facility] 12-19-2022 Miscellaneous Notes Formattin g of this note might be different from the original. Patient scheduled for nurse visit 01/02/23 to receive Hepatitis B vaccine. Please place order at this time. Maddie Ng LPN documented in this encounter [facility] 12-01-2022 Note HNO ID: [id number] Author: Hiram Barber MD Service: ? Author Type: Physician Type: Progress Notes Filed: 12/01/2022 4:08 PM Note Text: This note was created using J. Hilburnriter. Subjective Patient presents with: Yearly Exam Noa Green is a 52 year old male. He felt well with no concerns. We discussed progressive weight gain. He was aware of the need for lifestyle changes. Review of Systems Constitutional: Negative for chills, fatigue and fever. HENT: Negative. Eyes: Negative for visual disturbance. Respiratory: Negative for cough, chest tightness and shortness of breath. Cardiovascular: Negative for chest pain, palpitations and leg swelling. Gastrointestinal: Negative for abdominal pain, constipation, diarrhea, nausea and vomiting. Genitourinary: Negative for difficulty urinating and dysuria. Musculoskeletal: Negative for arthralgias and back pain. Skin: Negative for color change and rash. Neurological: Negative for dizziness and headaches. Psychiatric/Behavioral: Negative for dysphoric mood. PAST MEDICAL HISTORY Diagnosis Date COVID-19 06/11/2021 Juvenile rheumatic fever childhood--patient report Left inguinal hernia 08/19/2013 Migraine, unspecified, without mention of intractable migraine without mention of status migrainosus 11/04/2005 PAST SURGICAL HISTORY Procedure Laterality Date RPR 1ST INGUN HRNA AGE 5 YRS/> REDUCIBLE 1997 Hernia repair, inguinal - right Sy Villeda RPR 1ST INGUN HRNA AGE 5 YRS/> REDUCIBLE 01/28/14 left direct coopers - parietrex FAMILY HISTORY Problem Relation Age of Onset None Mother Heart Father age 70 Hypertension Father COPD Father None Sister None Brother Arthritis Maternal Grandmother Heart Maternal Grandfather Prostate Cancer Maternal Grandfather Colon Cancer Paternal Grandmother colon Heart Paternal Grandfather age 89 Social History Tobacco Use Smoking status: Never Smokeless tobacco: Never Tobacco comments: remote snuff use- 20 years ago. Substance Use Topics Alcohol use: Yes Comment: rare wine Drug use: Never Immunization History Administered Date(s) Administered tetanus diphtheria pertussis (Tdap) vaccine, age 7+ yr (ADACEL, BOOSTRIX) 03/02/2010 ALLERGIES No Known Allergies No current outpatient medications on file. No current facility-administered medications for this visit. Objective BP 126/72 (BP Site: Right Arm, BP Position: Sitting, BP Cuff Size: Large Adult) Pulse 80 Resp 16 Ht 176.8 cm (5' 9.6 ) Wt 103.4 kg (228 lb) BMI 33.09 kg/m? Physical Exam Constitutional: Appearance: He is not ill-appearing. HENT: Head: Normocephalic. Eyes: Extraocular Movements: Extraocular movements intact. Conjunctiva/sclera: Conjunctivae normal. Cardiovascular: Rate and Rhythm: Normal rate and regular rhythm. Heart sounds: No murmur heard. No gallop. Pulmonary: Effort: Pulmonary effort is normal. Breath sounds: Normal breath sounds. Abdominal: Palpations: Abdomen is soft. There is no mass. Tenderness: There is no abdominal tenderness. Musculoskeletal: General: No tenderness. Normal range of motion. Cervical back: Neck supple. Right lower leg: No edema. Left lower leg: No edema. Lymphadenopathy: Cervical: No cervical adenopathy. Neurological: General: No focal deficit present. Mental Status: He is alert. Psychiatric: Mood and Affect: Mood normal. Assessment and Plan 1. Routine medical exam - ICD9: V70.0, ICD10: Z00.00 (primary diagnosis) - Counseled on healthy diet and regular exercise - Discussed need for and benefit of weight loss. BMI 33.09 kg/(m2) - Depression screening tool completed and reviewed with patient. Based on score and interview, patient is not at risk for depression and recommended no further intervention at this time. - Patient was counseled [id number] by myself (the billing provider) for the following immunizations and vaccine components, including side effects: Hep B Vaccine and TdaP. Patient consents for immunization and understands risks and benefits. A VIS sheet on each immunization was given to the patient. - BASIC METABOLIC PNL - LIPID PANEL BASIC 2. Obesity, Class I, BMI 30-34.9 - ICD9: 278.00, ICD10: E66.9 Weight increasing - Behavioral intervention - Nutrition counseling offered and declined. 3. Need for vaccination - ICD9: V05.9, ICD10: Z23 - TDAP VACCINE, AGE 7+ YR (ADACEL, BOOSTRIX) - HEP B VACCINE, 3-DOSE, AGE 20+ YR (ENGERIX-B, RECOMBIVAX HB) Hiram Barber MD [facility] 12-01-2022 Instructions Hiram Barber MD - 12/01/2022 3:58 PM EDT Moderate exercise (like a brisk walk) 30 minutes 5 or more times a week. Low carbohydrate diet. Portion control for weight loss. Fasting labs soon. documented in this encounter [facility] 12-01-2022 History of Presen t illness Narrative This note was created using PeopleCubeter. Subjective Patient presents with: Yearly Exam Noa Green is a 52 year old male. He felt well with no concerns. We discussed progressive weight gain. He was aware of the need for lifestyle changes. Review of Systems Constitutional: Negative for chills, fatigue and fever. HENT: Negative. Eyes: Negative for visual disturbance. Respiratory: Negative for cough, chest tightness and shortness of breath. Cardiovascular: Negative for chest pain, palpitations and leg swelling. Gastrointestinal: Negative for abdominal pain, constipation, diarrhea, nausea and vomiting. Genitourinary: Negative for difficulty urinating and dysuria. Musculoskeletal: Negative for arthralgias and back pain. Skin: Negative for color change and rash. Neurological: Negative for dizziness and headaches. Psychiatric/Behavioral: Negative for dysphoric mood. PAST MEDICAL HISTORY Diagnosis Date COVID-19 06/11/2021 Juvenile rheumatic fever childhood--patient report Left inguinal hernia 08/19/2013 Migraine, unspecified, without mention of intractable migraine without mention of status migrainosus 11/04/2005 PAST SURGICAL HISTORY Procedure Laterality Date RPR 1ST INGUN HRNA AGE 5 YRS/> REDUCIBLE 1996 Hernia repair, inguinal - right Sy Villeda RPR 1ST INGUN HRNA AGE 5 YRS/> REDUCIBLE 01/28/14 left direct coopers - parietrex FAMILY HISTORY Problem Relation Age of Onset None Mother Heart Father age 70 Hypertension Father COPD Father None Sister None Brother Arthritis Maternal Grandmother Heart Maternal Grandfather Prostate Cancer Maternal Grandfather Colon Cancer Paternal Grandmother colon Heart Paternal Grandfather age 89 Social History Tobacco Use Smoking status: Never Smokeless tobacco: Never Tobacco comments: remote snuff use- 20 years ago. Substance Use Topics Alcohol use: Yes Comment: rare wine Drug use: Never Immunization History Administered Date(s) Administered tetanus diphtheria pertussis (Tdap) vaccine, age 7+ yr (ADACEL, BOOSTRIX) 03/02/2010 ALLERGIES No Known Allergies No current outpatient medications on file. No current facility-administered medications for this visit. Objective BP 126/72 (BP Site: Right Arm, BP Position: Sitting, BP Cuff Size: Large Adult) Pulse 80 Resp 16 Ht 176.8 cm (5' 9.6 ) Wt 103.4 kg (228 lb) BMI 33.09 kg/m Physical Exam Constitutional: Appearance: He is not ill-appearing. HENT: Head: Normocephalic. Eyes: Extraocular Movements: Extraocular movements intact. Conjunctiva/sclera: Conjunctivae normal. Cardiovascular: Rate and Rhythm: Normal rate and regular rhythm. Heart sounds: No murmur heard. No gallop. Pulmonary: Effort: Pulmonary effort is normal. Breath sounds: Normal breath sounds. Abdominal: Palpations: Abdomen is soft. There is no mass. Tenderness: There is no abdominal tenderness. Musculoskeletal: General: No tenderness. Normal range of motion. Cervical back: Neck supple. Right lower leg: No edema. Left lower leg: No edema. Lymphadenopathy: Cervical: No cervical adenopathy. Neurological: General: No focal deficit present. Mental Status: He is alert. Psychiatric: Mood and Affect: Mood normal. Assessment and Plan 1. Routine medical exam - ICD9: V70.0, ICD10: Z00.00 (primary diagnosis) - Counseled on healthy diet and regular exercise - Discussed need for and benefit of weight loss. BMI 33.09 kg/(m^2) - Depression screening tool completed and reviewed with patient. Based on score and interview, patient is not at risk for depression and recommended no further intervention at this time. - Patient was counseled [id number] by myself (the billing provider) for the following immunizations and vaccine components, including side effects: Hep B Vaccine and TdaP. Patient consents for immunization and understands risks and benefits. A VIS sheet on each immunization was given to the patient. - BASIC METABOLIC PNL - LIPID PANEL BASIC 2. Obesity, Class I, BMI 30-34.9 - ICD9: 278.00, ICD10: E66.9 Weight increasing - Behavioral intervention - Nutrition counseling offered and declined. 3. Need for vaccination - ICD9: V05.9, ICD10: Z23 - TDAP VACCINE, AGE 7+ YR (ADACEL, BOOSTRIX) - HEP B VACCINE, 3-DOSE, AGE 20+ YR (ENGERIX-B, RECOMBIVAX HB) Hiram Barber MD documented in this encounter [facility] 01-19-2022 Miscellaneous Notes Call to pt LVM regarding below instructions: *NOTHING BY MOUTH 4 HOURS prior to this test. (you may have sips of water) *NO CAFFEINE FOR 24 HOURS PRIOR TO TESTING (ie. TEA even decaf, COFFEE- even decaf, CHOCOLATE, JESSICA- even decaf) *Do NOT take MEDICATIONS CONTAINING CAFFEINE/XANTHINE for 24 HOURS prior to testing: Theophylline, Trental, Excedrin, Anacin, Goody Powders, No Doz, Vivarin, Midol, Diurex, Fiorinal, Fioricet, Esgic (butalbital) *Do NOT take Calcium Channel Blockers 24 HOURS prior to test: Diltiazem (Cardizem), Verapamil *Do NOT take Beta blockers 24 HOURS prior to test UNLESS your doctor tells you otherwise: Bisoprolol (Zebeta, ZIAC), Metoprolol (Lopressor, Toprol, Lopressor HCT), Nadolol ( Corgard, Corizide), Nebivolol (Bystolic), Pindolol (Visken), Propranolol (Inderal, Inderide), Carvedilol (Coreg, Coreg CR), Labetalol (Trandate) Atenolol (Tenormin, Tenoretic) Acebutolol (Sectral). *Do NOT use the following medications 48 HOURS prior to this test: Viagra(Sildenafil citrate), Cialis(Tadalafil), Vardenafil (Levitra, Stanyx), Avanfil (Stendra). *Do not take any of these meds prior to test unless provider directs you otherwise; Nitroglycerine (ex:Deponit, Nitrostat) Isosorbide (ex:Isordil, Sorbitrate,Imdur,Ismo). *DO CONTINUE TO TAKE ALL YOUR OTHER MEDICATIONS YOU NORMALLY DO. *Guidelines for Diabetics: If you take insulin to control your blood sugar, ask you physician what amount you should take the day of the test. If you take pills to control blood sugar, on the day of the test, do NOT take them until AFTER the test. *FAILURE TO FOLLOW THESE INSTRUCTIONS WILL RESULT IN HAVING TO RESCHEDULE THE TEST. *Please wear comfortable clothes with a short-sleeved shirt and comfortable walking shoes. *If you use an inhaler, bring it along with you just in case *THIS TEST MAY TAKE UP TO 3 HOURS TO COMPLETE. Please check in on the first floor at Radiology: [address]; [place] [address] *This stress test will appear as 3 appointments on your schedule. You may get multiple reminder calls, but please arrive at the earliest scheduled appointment. * If you need to cancel or reschedule this test or have any questions regarding this test, please call [phone]. documented in this encounter [facility] 12-01-2021 Instructions Hiram Barber MD - 12/01/2021 4:22 PM EDT Regular exercise, weight loss recommended. Send your vaccination records and health screenings for updating your records. Other health maintenance to consider: COVID-19 VACCINE(1) Never done HEPATITIS C SCREENING Never done HIV SCREENING Never done LIPID SCREEN due on 11/24/2014 DIABETES SCREEN due on 01/09/2017 DTAP,TDAP,TD(2 - Td or Tdap) due on 03/02/2020 SHINGRIX VACCINE(1 of 2) Never done documented in this encounter [facility] 12-01-2021 History of Presen t illness Narrative This note was created using NoteWriter. Subjective Patient presents with: ED Follow-up: previous PCP Dr. 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 He was in the ER 11/19/21 with atypical chest pains. Labs, EKG, and chest X-ray were unremarkable. He was advised outpatient follow up. Symptoms have not recurred. He had similar issues in 2019, but he did not follow up. He wanted to evaluate this further today. He gets wellness labs annually thru work. His lipids were borderline elevated. He did not exercise regularly but was active at work. Review of Systems Constitutional: Negative. HENT: Negative. Eyes: Negative. Respiratory: Negative. Cardiovascular: Negative for chest pain, palpitations and leg swelling. See HPI. No recurrence. Gastrointestinal: Negative. Genitourinary: Negative. Musculoskeletal: Negative. Skin: Negative. Neurological: Negative. Psychiatric/Behavioral: Negative. PAST MEDICAL HISTORY Diagnosis Date COVID-19 06/11/2021 Juvenile rheumatic fever childhood--patient report Left inguinal hernia 08/19/2013 Migraine, unspecified, without mention of intractable migraine without mention of status migrainosus 11/04/2005 PAST SURGICAL HISTORY Procedure Laterality Date RPR 1ST INGUN HRNA AGE 6 YRS/> REDUCIBLE 1996 Hernia repair, inguinal - right Sy Villeda RPR 1ST INGUN HRNA AGE 6 YRS/> REDUCIBLE 01/28/14 left direct coopers - parietrex FAMILY HISTORY Problem Relation Age of Onset None Mother Heart Father age 70 Hypertension Father COPD Father None Sister None Brother Arthritis Maternal Grandmother Heart Maternal Grandfather Prostate Cancer Maternal Grandfather Colon Cancer Paternal Grandmother colon Heart Paternal Grandfather age 89 Social History Tobacco Use Smoking status: Never Smoker Smokeless tobacco: Never Used Tobacco comment: remote snuff use- 20 years ago. Substance Use Topics Alcohol use: Yes Comment: rare wine Drug use: Never Immunization History Administered Date(s) Administered Tdap (Age 7+) 03/02/2010 ALLERGIES No Known Allergies No current outpatient medications on file. Current Facility-Administered Medications Medication Dose Route Frequency perflutren lipid microspheres 1.3 mL in NaCl (PF) 0.9% 10 mL injection (DEFINITY) INTRAVENOUS DIRECTED PRN sodium chloride 0.9 % (flush) 10 mL (BD POSIFLUSH) 10 mL INTRAVENOUS DIRECTED PRN Objective BP 124/80 (BP Site: Left Arm, BP Position: Sitting, BP Cuff Size: Large Adult) Pulse 68 Temp 36.4 C (97.6 F) (Temporal Artery) Resp 18 Wt 98 kg (216 lb) BMI 30.92 kg/m Physical Exam Constitutional: Appearance: He is obese. He is not ill-appearing. HENT: Head: Normocephalic. Eyes: Extraocular Movements: Extraocular movements intact. Conjunctiva/sclera: Conjunctivae normal. Cardiovascular: Rate and Rhythm: Normal rate and regular rhythm. Heart sounds: No murmur heard. No gallop. Pulmonary: Effort: Pulmonary effort is normal. Breath sounds: Normal breath sounds. Abdominal: Palpations: Abdomen is soft. Tenderness: There is no abdominal tenderness. Musculoskeletal: General: No tenderness. Normal range of motion. Right lower leg: No edema. Left lower leg: No edema. Lymphadenopathy: Cervical: No cervical adenopathy. Neurological: General: No focal deficit present. Mental Status: He is alert. Gait: Gait normal. Psychiatric: Mood and Affect: Mood normal. ER reports reviewed. Assessment and Plan 1. Routine medical exam - ICD9: V70.0, ICD10: Z00.00 (primary diagnosis) - Counseled on healthy diet and regular exercise - Discussed need for and benefit of weight loss. BMI 30.92 kg/(m^2) - Colorectal cancer screening recommended - agrees to Cologuard - Risks/benefits of prostate cancer screening discussed. screening PSA ordered - Depression screening tool completed and reviewed with patient. Based on score and interview, patient is not at risk for depression and recommended no further intervention at this time. - Follow up for annual exam in one year 2. Obesity, Class I, BMI 30-34.9 - ICD9: 278.00, ICD10: E66.9 Newly diagnosed - Behavioral intervention 3. Chest pain, unspecified type - ICD9: 786.50, ICD10: R07.9 Atypical chest pain. - Limitations of stress testing were discussed. Consider cardiology referral if equivocal. - STRESS ECHO TREADMILL - PERFLUTREN LIPID MICROSPHERES 1.1 MG/ML INJECTION IN NS 10 ML - SODIUM CHLORIDE 0.9 % (FLUSH) INJECTION SYRINGE - SELF CHECK COVID 4. Screening for prostate cancer - ICD9: V76.44, ICD10: Z12.5 See above. - PSA/PROSTSPECAG SCRN 5. Screening for colon cancer - ICD9: V76.51, ICD10: Z12.11 See above. - COLOGUARD Hiram Barber MD documented in this encounter [facility] documented as of this encounter (statuses as of 12/02/2021) [facility]12-09-2013 History of Past illness Narrative* Problem Noted Date Resolved Date Left inguinal hernia 08/19/2013 12/01/2021 Fatigue 05/20/2010 12/01/2021 documented as of this encounter (statuses as of 01/19/2022) [facility]12-09-2013 History of Past illness Narrative* Problem Noted Date Resolved Date Left inguinal hernia 08/19/2013 12/01/2021 Fatigue 05/20/2010 12/01/2021 Migraine, unspecified, witho ut mention of intractable migraine without mention of status migrainosus 11/04/2005 023 documented as of this encounter (statuses as of 12/01/2022) [facility]12-09-2013 History of Past illness Narrative* Problem Noted Date Resolved Date Left inguinal hernia 08/19/2013 12/01/2021 Fatigue 05/20/2010 12/01/2021 Migraine, unspecified, witho ut mention of intractable migraine without mention of status migrainosus 11/04/2005 023 documented as of this encounter (statuses as of 12/22/2022) [facility]12-09-2013 History of Past illness Narrative* Problem Noted Date Diagnosed Date Resolved Date Left inguinal hernia 08/19/2013 022 Fatigue 05/20/2010 12/01/2021 Migraine, unspecified, witho ut mention of intractable migraine without mention of status migrainosus 11/04/2005 12/01/2022 documented as of this encounter (statuses as of 05/26/2023) [facility]12-09-2013 History of Past illness Narrative* Problem Noted Date Diagnosed Date Resolved Date Left inguinal hernia 08/19/2013 022 Fatigue 05/20/2010 12/01/2021 Migraine, unspecified, witho ut mention of intractable migraine without mention of status migrainosus 11/04/2005 12/01/2022 documented as of this encounter (statuses as of 06/21/2023) [facility] note* Diagnosis Routine medical exam- Primary Routine general medical examination at a health care facility Obesity, Class I, BMI 30-34.9 Obesity, unspecified Chest pain, unspecified type Screening for prostate cancer Special screening for malignant neoplasm of prostate Screening for colon cancer Special screening for malignant neoplasms, colon documented in this encounter [facility] note* Diagnosis Routine medical exam- Primary Routine general medical examination at a health care facility Obesity, Class I, BMI 30-34.9 Obesity, unspecified Need for vaccination Need for prophylactic vaccination and inoculation against unspecified single disease documented in this encounter [facility] note* Diagnosis Need for vaccination- Primary Need for prophylactic vaccination and inoculation against unspecified single disease [facility] Outpatient Procedure (Routine) - Pending Review Specialty Diagnoses / Procedures Referred By Kyler avina [facility] Diagnoses Chest pain, unspecified type Procedures STRESS ECHO TREADMILL ECHO TTHRC R-T 2D W/WO M-MODE COMPLETE REST&ST Hiram Barber MD [address] [place] [address] [facility] [address] [address] Referral ID Status Reason Start Date Expiration Date Visits Requested Visits Authorized [id number] Pending Review Auto-Generat ed Referral 12/01/2021 12/01/2022 1 1 [facility] Summary Purpose Family History No Family History Records Found Advance Directives No Advanced Directives Records Found Additional Source Comments Source Comments (unrecognize d section and content) In the event this informatio n is protected by the Federal Confidentiality of Alcohol and Drug Abuse Patient Records regulations: The Federal rules restrict any use of the information to criminally investigate or prosecute any alcohol or drug abuse patient.[facility] the event this information is protected by the Federal Confidentiality of Alcohol and Drug Abuse Patient Records regulations: The Federal rules restrict any use of the information to criminally investigate or prosecute any alcohol or drug abuse patient.[facility] the event this information is protected by the Federal Confidentiality of Alcohol and Drug Abuse Patient Records regulations: The Federal rules restrict any use of the information to criminally investigate or prosecute any alcohol or drug abuse patient.[facility] the event this information is protected by the Federal Confidentiality of Alcohol and Drug Abuse Patient Records regulations: The Federal rules restrict any use of the information to criminally investigate or prosecute any alcohol or drug abuse patient.[facility] the event this information is protected by the Federal Confidentiality of Alcohol and Drug Abuse Patient Records regulations: The Federal rules restrict any use of the information to criminally investigate or prosecute any alcohol or drug abuse patient.[facility] the event this information is protected by the Federal Confidentiality of Alcohol and Drug Abuse Patient Records regulations: The Federal rules restrict any use of the information to criminally investigate or prosecute any alcohol or drug abuse patient.[facility] Reason for Visit (unrecogniz ed section and content) Reason Comments stress test instructions Reason Comments Yearly Exam Reason Comments Orders Reason Comments Imm/Inj Care Teams (unrecognized sec tion and content) Radio Adjuster Relationship Specialty Start Date End Date Hiram Barber MD [address], [place] [id number] PCP - General Internal Medicine 12/29/21 Radio Adjuster Relationship Specialty Start Date End Date Hiram Barber MD [address], [place] [id number] PCP - General Internal Medicine 12/29/21 Radio Adjuster Relationship Specialty Start Date End Date Hiram Barber MD [address], [place] [address] PCP - General Internal Medicine 12/29/21 Radio Adjuster Relationship Specialty Start Date End Date Hiram Barber MD [address], [place] [id number] PCP - General Internal Medicine 12/29/21 (unrecognized sect ion and content) No Status Records Found INFORMATION SOURCE (unrecogn ized section and content) FOR RECORDS PERTAINING TO PATIENTS WHO ARE OR HAVE BEEN ENROLLED IN A CHEMICAL DEPENDENCY/SUBSTANCEABUSE PROGRAM, SOME INFORMATION MAY BE OMITTED. This clinical summary was aggregated from multiple sources. Caution should be exercised in using it in the provision of clinical care. This summary normalizes information from multiple sources, and as a consequence, information in this document may materially change the coding, format and clinical context of patient data. In addition, data may be omitted in some cases. CLINICAL DECISIONS SHOULD BE BASED ON THE PRIMARY CLINICAL RECORDS. [facility]. provides no warranty or guarantee of the accuracy or completeness of information in this document.
== END 2023-09-06 18:41 | disposition home or self-care (01) ==
LOC: ED 12:02 → MS3 13:09
PROVIDERS: Emergency Medicine; Admitting Provider Surgery; Emergency Provider Student in an Organized Health Care Education/Training Program; Visit Provider Surgery
PROC: (CPT 47610; principal; 2023-09-06 13:00)
DX: K80.12 Calculus of gallbladder with acute and chronic cholecystitis without obstruction (principal); K82.A1 Gangrene of gallbladder in cholecystitis; K21.9 Gastro-esophageal reflux disease without esophagitis
CPT/HCPCS: 47563; 00790; 36415; 74177; 74300; 76000; 76705; 80048; 80076; 83690; 84484; 85025; 88304; 93005; 94668; 96361; 96365; 96366; 96367; 96375; 96376; 99221; 99252; 99284; J7030; J7120; Q9967; G0378; G0463; J2405

== ENCOUNTER 2023-09-08 18:33 | Inpatient (IN) | payer OTHER, SELFPAY ==
[2023-09-08 18:36] VITALS: BP 156/99; PULSE 96; RESP 14; TEMP 36.8; O2SAT 93; BMI 33.5
--- NOTE | 2023-09-08 19:17 | EDS_ITS ---
HPI History of Present Illness Chief Complaint: Nausea/Vomiting [facility] Medical History (Updated 09/08/23 @ 22:[address] Austen Glynn MD) History of stress test Rheumatic fever Home Medications oxycodone-acetaminophen 5 mg-325 mg tablet 1 - 2 tab PO Q6H PRN pain 3 days #14 tabs 09/06/23 [Rx Last Taken Unknown] Allergy/AdvReac Type Severity Reaction Status Date / Time No Known Allergies Allergy Verified 09/08/23 18:35 Surgical History (Updated 09/08/23 @ 22:33 by Rebecca Guzman) History of herniorrhaphy Hx of cholecystectomy Social History Smoking Status: Never smoker EXAM Physical Exam Const Vital Signs: 09/08/23 18:36 Temperature 98.2 F Temperature Source Temporal Pulse Rate 96 Respiratory Rate 14 Blood Pressure 156/99 H Blood Pressure Mean 118 Pulse Ox 93 Oxygen Delivery Method Room Air MDM MDM MDM Narrative Medical decision making narrative: HISTORY OF PRESENT ILLNESS: 53-year-old male presents with nausea vomiting. Notes he status post cholecystectomy 2 days ago. Notes he is concerned about his incision site. He further states symptoms developed this afternoon. States several episodes of nonbloody however bilious vomitus. States he has increased redness around his abdominal incision site. No chest pain or shortness of breath. Denies fever or chills. Patient Dors not having a bowel movement since surgery. No melena or hematochezia noted. No urinary complaints. REVIEW OF SYSTEMS: Pertinent positives: Abdominal pain, nausea vomiting Pertinent negatives: Fever PHYSICAL EXAM: Nursing triage notes reviewed, Vital signs reviewed Constitutional: please see mdm HENT: MMM Eyes: Pupils equal round and reactive to light, Extraocular muscles intact Neck: No stridor, no JVD, full neck ROM Lungs: Clear to auscultation, No wheezing or rales. No increased work of breathing, no conversational dyspnea, no accessory muscle use, no nasal flaring. No respiratory distress noted Heart: Regular rate and rhythm, No murmurs, No rubs and No gallops, 2+ distal pulses (radial, femoral, posterior tibial) in all extremities Abdomen: Soft, there is no tenderness, rigidity, rebound or guarding, no obvious peritoneal signs, no palpable pulsatile abdominal masses, no auscultated abdominal bruit : No CVAT Extremities: No edema Neuro: No focal neurological deficits, cranial nerves II through XII intact, 5/5 strength in all extremities. Intact sensation to light touch in all extremities, 2+ reflexes bilateral patella tendons. Normal gait. No ataxia. Skin: No rash or lesions noted MEDICAL DECISION MAKING: Chief Complaint: Abdominal pain, nausea vomiting External records reviewed: Patient underwent cholecystectomy by Dr. vAelar on 09/06/2023 Factors affecting care: Status post cholecystectomy Social determinants of health: none History obtained from others: The patient's Consults: none [facility] Narrative: Patient was hemodynamically stable, afebrile, nontoxic-appearing. Abdomen soft, nonperitoneal neck. There is approximately 5 x 5 cm area of redness and slight induration but no fluctuance noted to the umbilical trocar site. I considered the following differential diagnosis: Postop infection, dehydration, electrolyte disturbance, postop seroma, abscess ALL IMAGES (IF OBTAINED) HAVE BEEN PERSONALLY REVIEWED AND INTERPRETED BY MYSELF. CBC with leukocytosis suggestive of systemic inflammation, no anemia or thrombocytopenia CMP without significant electrolyte disturbances, no ROOPA, There is elevation of the patient's total bilirubin as well as ALT and AST likely secondary to recent operation Lipase is wnl indicating no pancreatic inflammation. CT scan abdomen pelvis was read as incarcerated umbilical hernia. CT reviewed I called Dr. Glynn (general surgery on-call) who recommended attempting to mainly reduce the hernia at the bedside. Went to the room did not feel an obvious hernia there was an area of induration again over the umbilicus over the trocar site with surrounding skin changes however I cannot feel any hernia to reduce. I communicated this with Dr. Glynn. Dr. Glynn does not take the patient directly to surgery. The patient and/or family, caregivers express understanding. The patient and/or family, caregivers agrees with the plan. Shared decision making: I will have a discussion with the patient and or visitors regarding risk/benefits of further testing or admission. They will be made aware of of the risk/benefits inherent in this decision they will be given the opportunity to voice understanding. Total critical care time today provided was at least 35 minutes. This excludes separately billable procedures. Critical care time (if documented) is secondary to the patient having high probability of clinically significant/life threatening deterioration in the patient's condition which required my urgent intervention. Impression: 1. Nausea/vomiting 2. Incarcerated abdominal hernia 3. Leukocytosis 4. Elevated liver enzymes Dispo: Admit to the OR Lab Data Attestation: I reviewed the patient's lab results. Labs: Laboratory Results - last 24 hr 09/08/23 19:30 WBC 11.9 H RBC 4.90 Hgb 15.3 Hct 45.0 MCV 91.8 MCH 31.2 MCHC 34.0 RDW Std Deviation 42.0 RDW Coeff of Jelena 12.5 Plt Count 226 MPV 10.4 Immature Gran % (Auto) 0.400 Neut % (Auto) 89.0 H Lymph % (Auto) 4.9 L [place] % (Auto) 5.6 Eos % (Auto) 0.0 Baso % (Auto) 0.1 Absolute Neuts (auto) 10.6 H Absolute Lymphs (auto) 0.58 L Nucleated RBC % 0 Differential Comment SEE COMMENT Platelet Estimate ADEQUATE RBC Morphology N CHROM Anisocytosis RARE Macrocytosis RARE Sodium 136 Potassium 3.6 Chloride 102 Carbon Dioxide 29.0 Anion Gap 5 BUN 15 Creatinine 1.10 Estim Creat Clear Calc 78.56 Est GFR (MDRD) Af Amer 90 Est GFR (MDRD) Non-Af 75 BUN/Creatinine Ratio 13.6 Glucose 115 H Lactic Acid 1.2 Calcium 9.3 Total Bilirubin 1.20 H Direct Bilirubin 0.32 H AST 70 H ALT 112 H Alkaline Phosphatase 87 Total Protein 6.9 Albumin 3.4 Globulin 3.5 Lipase 24 Radiography Chest X-Ray - ED: Read by ED Physician Diagnostic Testing: Clinical Impression(s) from Imaging Studies Abdomen/Pelvis CT 09/08/23 19:49 IMPRESSION: 1. Small umbilical hernia with incarceration of a loop of small bowel producing moderate bowel obstruction with dilatation of the jejunum but no evidence of perforation. 2. Interval cholecystectomy without postoperative fluid collection. 3. Small amount of free fluid in the pelvis. 4. Sigmoid diverticulosis without diverticulitis. Electronically Signed: Erwin Hardy MD at 21:06 EST , Discharge Plan Triage Chief Complaint: Nausea/Vomiting ED Provider: Aaron,Oswaldo Dx/Rx/DC Orders Primary Care Provider: Care Physician,No Primary
[2023-09-08] MEDS: 0.9% Normal Saline (1000mL) 1,000 ML 1000 ML IV (19:35)
[2023-09-08] MEDS: Ondansetron 4 MG/2 ML Vial IV ×2 (19:35→22:21)
[2023-09-08 19:39] LABS: Absolute Lymphocyte Count 0.58 X10^3/uL (0.83-4.51); Absolute Neutrophil Count 10.6 X10^3/uL (2.0-7.7); Basophil# 0.01 X10^3/uL; Basophil% 0.1 % (0-1); Hemoglobin 15.3 g/dL (13.0-16.5); Lymphocyte # 0.58 X10^3/ul (0.83-4.51); Lymphocyte % 4.9 % (19-41); Mean Corpuscular Hgb 31.2 pg (27.0-32.0); Mean Corpuscular Volume 91.8 fL (80-94); Mean Platelet Vol. 10.4 fl (6.2-12.0); Monocyte# 0.67 X10^3/uL; Monocyte% 5.6 % (0-10); NRBC Flagged by Analyzer 0 % (0-5); Neutrophil # 10.62 X10^3/uL (2.7-7.7); POSITIVE DIFFERENTIAL YES; Platelet Count 226 K/mm3 (150-450); RBC Distribution Width CV 12.5 % (11.6-14.6); White Blood Count 11.9 K/mm3 (4.4-11.0)
--- NOTE | 2023-09-08 19:49 | CT_ITS ---
We are attempting to reach an attending provider to discuss findings. An addendum with communication details will be sent when the communication is complete. STUDY: CT ABDOMEN AND PELVIS WITH CONTRAST REASON FOR EXAM: Male, 53 years old. n/v, post surgery eval for post operative infection RADIATION DOSAGE (If Supplied By Facility): CTDIvol = ( 17.32 ) mGy, DLP = ( 1179.46 ) mGycm TECHNIQUE: Transaxial images were obtained from the dome of the diaphragm to the symphysis pubis without oral contrast. IV 100mL Isovue-300 was administered. Sagittal and coronal images were reconstructed. Individualized dose optimization techniques were used for this CT. COMPARISON: 09/05/2023 FINDINGS: The visualized lung bases are unremarkable. The visualized portions of the heart are within normal limits. Normal liver. There are surgical clips in the gallbladder fossa consistent with a prior cholecystectomy. No loculated fluid collection in the gallbladder fossa to suggest postoperative seroma, hematoma, abscess, or biloma. Normal spleen. Normal pancreas. Normal bilateral adrenal glands. 3 mm nonobstructing stone lower pole right kidney. 4 cm cyst in the anterior cortex of the midsection left kidney. Normal visualized stomach. Moderately dilated fluid-filled jejunum. There are multiple colonic diverticula consistent with diverticulosis. The appendix is visualized and appears normal. Normal abdominal aorta. Normal inferior vena cava. Normal retroperitoneum. Normal urinary bladder. Small amount of free fluid in the pelvis. 2.5 cm umbilical hernia with incarceration of a loop of small bowel with moderately dilated and fluid-filled jejunum consistent with obstruction. No pneumoperitoneum to suggest perforation. Normal osseous structures. CT/Abdomen/Pelvis W IV Cont ONLY IMPRESSION: 1. Small umbilical hernia with incarceration of a loop of small bowel producing moderate bowel obstruction with dilatation of the jejunum but no evidence of perforation. 2. Interval cholecystectomy without postoperative fluid collection. 3. Small amount of free fluid in the pelvis. 4. Sigmoid diverticulosis without diverticulitis. Electronically Signed: Erwin Hardy MD at 21:06 EST ,
[2023-09-08 19:53] LABS: Differential Indicated SCAN CRITERIA MET
[2023-09-08 20:02] LABS: AST(SGOT) 70 U/L (15-37); Alanine Aminotransfer ALT/SGPT 112 U/L (16-61); Albumin, Serum 3.4 g/dL (3.2-5.0); Alkaline Phosphatase 87 U/L (45-117); Anion Gap 5 (5-15); BUN 15 mg/dL (7-18); BUN/Creat Ratio 13.6 RATIO (10-20); Bilirubin, Direct 0.32 mg/dL (0.00-0.30); Calcium,Total 9.3 mg/dL (8.5-10.1); Chloride 102 mmol/L (98-107); EST Glomerular Filtration Rate 75 mL/min (>60); Est Glom Filt Rate - Afr Amer 90 mL/min (>60); Estimated Creatinine Clearance 78.56 ml/min; Globulin 3.5 g/dL (2.2-4.2); Glucose 115 mg/dL (74-106); Lipase 24 U/L (13-75); Potassium 3.6 mmol/L (3.5-5.1); Protein, Total 6.9 g/dL (6.4-8.2); Sodium Level 136 mmol/L (136-145)
[2023-09-08 20:17] LABS: Anisocytosis RARE; Macrocytosis RARE; Platelet Estimate ADEQUATE (ADEQ); Red Cell Morphology N CHROM NORMAL (NORM C&C)
[2023-09-08 20:18] LABS: Lactic Acid 1.2 mmol/L (0.4-1.9)
--- NOTE | 2023-09-08 22:09 | PCM.HP.STD ---
HPI - General HPI Narrative ALMA ROSA JAMES, is a 53 M who presents with nausea and vomiting. The patient is postoperative day 3 from cholecystectomy. Patient states he not had a bowel movement since surgery. Patient is painful at his umbilical port site. [facility] Medical History (Updated 09/08/23 @ 22:[address] Austen Glynn MD) History of stress test Rheumatic fever Home Medications oxycodone-acetaminophen 5 mg-325 mg tablet 1 - 2 tab PO Q6H PRN pain 3 days #14 tabs 09/06/23 [Rx Last Taken Unknown] pantoprazole 40 mg tablet,delayed release 40 mg PO DAILY #30 tabs 09/06/23 [Rx Last Taken Unknown] Allergy/AdvReac Type Severity Reaction Status Date / Time No Known Allergies Allergy Verified 09/08/23 18:35 Surgical History History of herniorrhaphy Social History Smoking Status: Never smoker ROS Constitutional Constitutional: Denies anorexia, chills or fatigue Eyes Eyes: Denies blurry vision ENT HEENT: Denies abnormal hearing Cardiovascular Cardiovascular: Denies chest pain Respiratory/Chest Respiratory/Chest: Denies cough or dyspnea Gastrointestinal Gastrointestinal: Reports abdominal pain, nausea and vomiting Genitourinary Genitourinary: Denies change in urinary stream Musculoskeletal Musculoskeletal: Denies abnormal gait Integumentary Integumentary: Denies jaundice Neurologic Neurologic: Denies abnormal gait Vital Signs Vital Signs Vital Signs: 09/08/23 18:36 Temperature 98.2 F Temperature Source Temporal Pulse Rate 96 Respiratory Rate 14 Blood Pressure 156/99 H Blood Pressure Mean 118 Pulse Ox 93 Oxygen Delivery Method Room Air Weight Weight: 227 lb 4.745 oz Body Mass Index (BMI) 33.5 Physical Exam Const oriented x3 and no apparent distress Resp normal respiratory effort GI soft to palpation Palpation: tender periumbilical Results Lab / Micro Data 09/08/23 19:30 09/08/23 19:30 Labs: Laboratory Results - last 24 hr 09/08/23 19:30: WBC 11.9 H, RBC 4.90, Hgb 15.3, Hct 45.0, MCV 91.8, MCH 31.2, MCHC 34.0, RDW Std Deviation 42.0, RDW Coeff of Jelena 12.5, Plt Count 226, MPV 10.4, Immature Gran % (Auto) 0.400, Neut % (Auto) 89.0 H, Lymph % (Auto) 4.9 L, [place] % (Auto) 5.6, Eos % (Auto) 0.0, Baso % (Auto) 0.1, Absolute Neuts (auto) 10.6 H, Absolute Lymphs (auto) 0.58 L, Nucleated RBC % 0, Differential Comment SEE COMMENT, Platelet Estimate ADEQUATE, RBC Morphology N CHROM, Anisocytosis RARE, Macrocytosis RARE, Sodium 136, Potassium 3.6, Chloride 102, Carbon Dioxide 29.0, Anion Gap 5, BUN 15, Creatinine 1.10, Estim Creat Clear Calc 78.56, Est GFR (MDRD) Af Amer 90, Est GFR (MDRD) Non-Af 75, BUN/Creatinine Ratio 13.6, Glucose 115 H, Lactic Acid 1.2, Calcium 9.3, Total Bilirubin 1.20 H, Direct Bilirubin 0.32 H, AST 70 H, ALT 112 H, Alkaline Phosphatase 87, Total Protein 6.9, Albumin 3.4, Globulin 3.5, Lipase 24 Imagaing Radiology Impression Abdomen/Pelvis CT 09/08/23 19:49 IMPRESSION: 1. Small umbilical hernia with incarceration of a loop of small bowel producing moderate bowel obstruction with dilatation of the jejunum but no evidence of perforation. 2. Interval cholecystectomy without postoperative fluid collection. 3. Small amount of free fluid in the pelvis. 4. Sigmoid diverticulosis without diverticulitis. Electronically Signed: Erwin Hardy MD at 21:06 EST , ADDENDUM: 09/08/23 2141 IMPRESSION: 1. Small umbilical hernia with incarceration of a loop of small bowel producing moderate bowel obstruction with dilatation of the jejunum but no evidence of perforation. 2. Interval cholecystectomy without postoperative fluid collection. 3. Small amount of free fluid in the pelvis. 4. Sigmoid diverticulosis without diverticulitis. N.B. : The above Results were Read Back by Erwin Hardy MD to Aaron, Oswaldo, DO, and understanding confirmed on 09/08/2023 21:35:03 (ET). Electronically Signed: Erwin Hardy MD at 21:06 EST , Assessment & Plan Assessment/Plan (1) Incarcerated hernia: PLAN: The patient has an incarcerated incisional hernia at his umbilical port site containing small bowel that is causing a bowel obstruction. I was unable to reduce the hernia at the bedside. I will take him for surgery to evaluate. I explained that I would open his incision and evaluate the bowel and likely perform laparoscopy to evaluate the bowel once that is reduced. I would then reclose the fascial defect. I also discussed possibility of bowel resection if the bowel appears necrotic. I discussed the risks including but not limited to bleeding, infection, injury to underlying organs, need for bowel resection and open surgery. Patient understands all the risks and is willing to proceed. I will order antibiotics. Patient will have an NG tube placed in the emergency room. Austen Glynn MD Pager: [facility] [address] [place] [address], [address] [place] [address] Office:
--- NOTE | 2023-09-08 22:13 | EKG12_ITS ---
Test Reason : PRE-OP Blood Pressure : / mmHG Vent. Rate : 110 BPM Atrial Rate : 110 BPM P-R Int : 148 ms QRS Dur : 090 ms QT Int : 322 ms P-R-T Axes : 038 -26 019 degrees QTc Int : 435 ms Sinus tachycardia Possible Left atrial enlargement Borderline ECG Confirmed by ROHIT ROMERO, ALVERTO ([id number]), editor greeting card BRENDA MCNEILL ([id number]) on 09/12/2023 8:30:45 AM Referred By: Oswaldo Walker Confirmed By:ALVERTO BEE MD
--- OUTSIDE RECORDS SUMMARY | 2023-09-08 22:18 | XMS RPT_ITS | CCD ---
Author Name Unknown Address [address] [place] [address] Organization [facility] Care Team Providers Care Developer Advocate Name Role Phone Unavailable Primary Care Provider UnavailHiram Bean MD Primary Care Provider [phone] Hiram Barber MD Primary Care Provider [phone] HIRAM BARBER Primary Care Unavailable HIRAM BARBER [...] 176.8 cm Hiram Barber MD Work Phone: [facility] 12-01-2022 15:23-0400 Body weight 103.42 kg Hiram Barber MD Work Phone: [facility] 12-01-2022 15:23-0400 Diastolic blood pressure 72 mm[Hg] Hiram Barber MD Work Phone: [facility] 12-01-2022 15:23-0400 Heart rate 80 /min Hiram Barber MD Work Phone: [facility] 12-01-2022 15:23-0400 Respiratory rate 16 /min Hiram Barber MD Work Phone: [facility] 12-01-2022 15:23-0400 Systolic blood pressure 126 mm[Hg] Hiram Barber MD Work Phone: [facility] 12-01-2021 15:37-0400 Body temperature 97.59 [degF] Hiram Barber MD Work Phone: [facility] 12-01-2021 15:37-0400 Body weight 97.98 kg Hiram Barber MD Work Phone: [facility] 12-01-2021 15:37-0400 Diastolic blood pressure 80 mm[Hg] Hiram Barber MD Work Phone: [facility] 12-01-2021 15:37-0400 Heart rate 68 /min Hiram Barber MD Work Phone: [facility] 12-01-2021 15:37-0400 Respiratory rate 18 /min Hiram Barber MD Work Phone: [facility] 12-01-2021 15:37-0400 Systolic blood pressure 124 mm[Hg] Hiram Barber MD Work Phone: [facility] Encounters Encounter Date Encounter Type Care Provider Facility Start: 06-20-2023 End: 06-20-2023 ambulatory HIRAM BARBER Facility:[facility] Start: 06-20-2023 End: 06-20-2023 Nursing evaluation of patient and report Mi Nurse Work Phone: [facility] Procedures Date Procedure Procedure Detail Performing Clinician Start: 12-30-2022 Lipid 1996 panel - S margaret or Plasma Lindesy Older 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 LEATHER MOSSER Work Phone: Start: 12-01-2021 Adult depression screening assessment Hiram Barber MD Work Phone: Start: 11-19-2021 BMP - EXTERNAL [facility]cf Prov ider Plan of Treatment Date Care Activity Detail Author Start: 12-01-2032 Urine microalbumin profile [facility] Start: 12-31-2027 Lipid 1996 panel - S margaret or Plasma Lipid Screening [facility] Start: 12-30-2025 Diabetes Screening Diabetes Screenin g [facility] Start: 12-16-2024 COLOGUARD (FIT-DNA) COLOGUARD (FIT-D NA) [facility] Start: 12-16-2024 COLORECTAL CANCER SCREENING COLORECTAL CANCER SCREENING [facility] Start: 11-19-2024 DIABETES SCREEN DIABETES SCREEN [facility] Start: 06-03-2023 Hepatitis B Vaccine (3 of 3 - 19+ 3-dose series) Hepatitis B Vaccine (3 of 3 - 19+ 3-dose series) [facility] Start: 05-12-2023 Influenza vaccination C [facility] Start: 03-10-2023 Influenza vaccination INFLUENZA (#1) [facility] Immunizations Immunization Date Immunization Notes Care Provider Fa cility 06-20-2023 hepatitis B vaccine, adult dosage Mi Nurse Work Phone: [facility] Work Phone: 01-02-2023 hepatitis B vaccine, adult dosage Lindsey Older 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 LEATHER MOSSER Work Phone: [facility] Work Phone: 12-01-2022 hepatitis B vaccine, adult dosage Hiram Barber MD Work Phone: [facility] Work Phone: 12-01-2022 tetanus toxoid, redu jacqui diphtheria toxoid, and acellular pertussis vaccine, adsorbed Hiram Barber MD Work Phone: [facility] Work Phone: 12-01-2022 hepatitis B vaccine, unspecified formulation Hiram Barber MD Work Phone: [facility] 03-02-2010 tetanus toxoid, redu jacqui diphtheria toxoid, and acellular pertussis vaccine, adsorbed Hiram Barber MD Work Phone: [facility] Work Phone: Payers Date Payer Category Payer Unknown MMO MMO [employer] [id number] 2019-Present [phone] [address] [place] [id number] PPO [id number] 2019 Unknown MMO MMO [employer] PPO [id number] 2019-Present [phone] [address] [place] [address] PPO [id number] 2019 Unknown [id number] Social History Date Type Detail Facility Start: 04-18-2011 End: 12-01-2022 Tobacco smoking status NHIS Never smoked tobacco [facility] Work Phone: Start: 04-18-2011 Tobacco use and exposure Smoke less tobacco non-user [facility] Work Phone: History of tobacco use Snuff User [facility] Work Phone: Start: 12-01-2021 End: 12-01-2022 Alcohol intake Current drinker of alcohol (finding) [facility] Start: 12-01-2021 End: 11-30-2022 History SDOH Alcohol Frequency 2 [facility] Start: 03-18-2020 End: 12-01-2021 History SDOH Alcohol Std Drinks 1 [facility] Start: 12-01-2021 History SDOH Alcohol Comment rare wine [facility] Start: 03-18-2020 End: 11-30-2022 History SDOH Social Connections Get Together 3 [facility] Start: 03-19-2020 History SDOH Financial 5 [facility] Start: 03-18-2020 Education 21 [facility] Start: 01-20-2014 Tobacco Comment remote snuff u se- 20 years ago. [facility] Start: 1970 Sex Assigned At Not on file C [facility] Start: 11-21-2021 End: 12-01-2021 Exposure to SARS-CoV-2 (event) Not sure [facility] Work Phone: Start: 12-01-2022 Tobacco use and exposure Forme r smokeless tobacco user [facility] Work Phone: Start: 11-30-2022 History SDOH Alcohol Std Drinks 98 [facility] Start: 12-01-2022 Tobacco Comment remote snuff u se- 27 years ago. [facility] Start: 11-30-2022 End: 06-20-2023 History of Social function [facility] Start: 11-30-2022 End: 06-20-2023 Social connection and isolation panel [facility] In a typical week, h ow many times do you talk on the telephone with family, friends, or neighbors? Patient refused [facility] Do you belong to any clubs or organizations such as anabaptism groups, unions, fraternal or athletic groups, or school groups? Yes [facility] How often to you hav e a drink containing alcohol? Monthly or less [facility] How often do you hav e 6 or more drinks on 1 occasion? Never [facility] Do you feel stress - tense, restless, nervous, or anxious, or unable to sleep at night because your mind is troubled all the time - these days [OSQ] Only a little [facility] (I/We) worried wheth er (my/our) food would run out before (I/we) got money to buy more. DK or Refused [facility] In the past 12 month s, was there a time when you were not able to pay the mortgage or rent on time? No [facility] Medical Equipment Procedure Code Equipment Code Equipment Origin al Text Equipment Identifier Dates Mesh Srg Pariete x 6cm Mark Rnd - [id number] Start: 01-28-2014 Clinical Notes 08-19-2013 to 06-20-2023 Maddie Ng LPN - 06/20/2023 3:48 PM EDTTelephone Encounter - Maddie Ng LPN - 05/26/2023 2:33 PM EDTTelephone Encounter - Maddie Ng LPN - 12/19/2022 11:11 AM EDTPatient Instructions Note Date & Type Note Facility 06-20-2023 Note HNO ID: [id number] Author: Maddie Ng LPN Service: ? Author Type: ? Type: Progress Notes Filed: 06/20/2023 3:49 PM Note Text: Patient presents for Hepatitis B vaccine. Denies any problems at this time. Tolerated injection well. Maddie Ng LPN [facility] 06-20-2023 History of Presen t illness Narrative Patient presents for Hepatitis B vaccine. Denies any problems at this time. Tolerated injection well. Maddie Ng LPN documented in this encounter [facility] 05-26-2023 Miscellaneous Notes Formattin g of this note might be different from the original. Patient scheduled for nurse visit 06/05/23 to receive Hepatitis B vaccine. Please place order at this time. Maddie Ng LPN documented in this encounter [facility] 01-02-2023 Note HNO ID: [id number] Author: Maddie Ng LPN Service: ? Author Type: ? Type: Progress Notes Filed: 01/02/2023 3:08 PM Note Text: Patient presents for Hepatitis B vaccine. Denies any problems at this time. Tolerated injection well. Maddie Ng LPN [facility] 12-19-2022 Miscellaneous Notes Formattin g of this note might be different from the original. Patient scheduled for nurse visit 01/02/23 to receive Hepatitis B vaccine. Please place order at this time. Maddie Ng LPN documented in this encounter [facility] 12-01-2022 Note HNO ID: [id number] Author: Hiram Barber MD Service: ? Author Type: Physician Type: Progress Notes Filed: 12/01/2022 4:08 PM Note Text: This note was created using [employer]. Subjective Patient presents with: Yearly Exam Noa [...] at this time. - Patient was counseled [id number] by myself (the billing provider) for the [...] YR (ENGERIX-B, RECOMBIVAX HB) Hiram Barber MD [facility] 12-01-2022 Instructions Hiram Barber MD - 12/01/2022 3:58 PM EDT Moderate exercise (like a brisk walk) 30 minutes 5 or more times a week. Low carbohydrate diet. Portion control for weight loss. Fasting labs soon. documented in this encounter [facility] 12-01-2022 History of Presen t illness Narrative This note was created using [employer]. Subjective Patient presents with: Yearly Exam Noa [...] at this time. - Patient was counseled [id number] by myself (the billing provider) for the [...] Hiram Barber MD documented in this encounter [facility] 01-19-2022 Miscellaneous Notes Call to pt [...] floor at Radiology: [address]; [place] [address] *This stress test will appear as 3 appointments on your schedule. You may get multiple reminder calls, but please arrive at the earliest scheduled appointment. * If you need to cancel or reschedule this test or have any questions regarding this test, please call [phone]. documented in this encounter [facility] 12-01-2021 Instructions Hiram Barber MD - [...] 2) Never done documented in this encounter [facility] 12-01-2021 History of Presen t illness [...] Hiram Barber MD documented in this encounter [facility] documented as of this encounter (statuses as of 12/02/2021) [facility]12-09-2013 History of Past illness Narrative* Problem Noted Date Resolved Date Left inguinal hernia 08/19/2013 12/01/2021 Fatigue 05/20/2010 12/01/2021 documented as of this encounter (statuses as of 01/19/2022) [facility]12-09-[facility] History of Past illness Narrative* Problem Noted Date Resolved Date Left inguinal hernia 08/19/2013 12/01/2021 Fatigue 05/20/2010 12/01/2021 Migraine, unspecified, witho ut mention of intractable migraine without mention of status migrainosus 11/04/2005 023 documented as of this encounter (statuses as of 12/01/2022) [facility] History of Past illness Narrative* Problem Noted Date Resolved Date Left inguinal hernia 08/19/2013 12/01/2021 Fatigue 05/20/2010 12/01/2021 Migraine, unspecified, witho ut mention of intractable migraine without mention of status migrainosus 11/04/2005 023 documented as of this encounter (statuses as of 12/22/2022) [facility] History of Past illness Narrative* Problem Noted Date Diagnosed Date Resolved Date Left inguinal hernia 08/19/2013 022 Fatigue 05/20/2010 12/01/2021 Migraine, unspecified, witho ut mention of intractable migraine without mention of status migrainosus 11/04/2005 12/01/2022 documented as of this encounter (statuses as of 05/26/2023) [facility] History of Past illness Narrative* Problem Noted Date Diagnosed Date Resolved Date Left inguinal hernia 08/19/2013 022 Fatigue 05/20/2010 12/01/2021 Migraine, unspecified, witho ut mention of intractable migraine without mention of status migrainosus 11/04/2005 12/01/2022 documented as of this encounter (statuses as of 06/21/2023) [facility] note* Diagnosis Routine medical exam- Primary Routine general medical examination at a health care facility Obesity, Class I, BMI 30-34.9 Obesity, unspecified Chest pain, unspecified type Screening for prostate cancer Special screening for malignant neoplasm of prostate Screening for colon cancer Special screening for malignant neoplasms, colon documented in this encounter [facility] note* Diagnosis Routine medical exam- Primary Routine general medical examination at a health care facility Obesity, Class I, BMI 30-34.9 Obesity, unspecified Need for vaccination Need for prophylactic vaccination and inoculation against unspecified single disease documented in this encounter [facility] note* Diagnosis Need for vaccination- Primary Need for prophylactic vaccination and inoculation against unspecified single disease [facility] Outpatient Procedure (Routine) - Pending Review Specialty Diagnoses / Procedures Referred By Kyler avina Referred [facility] Diagnoses Chest pain, unspecified type Procedures STRESS ECHO TREADMILL ECHO TTHRC R-T 2D W/WO M-MODE COMPLETE REST&ST Hiram Barber MD [address] [place] [address] [facility] [address] [address] Referral ID Status Reason Start Date Expiration Date Visits Requested Visits Authorized [id number] Pending Review Auto-Generat ed Referral 12/01/2021 12/01/2022 1 1 [facility] Summary Purpose Family History No Family [...] or prosecute any alcohol or drug abuse patient.[facility] the event this information is protected by the Federal Confidentiality of Alcohol and Drug Abuse Patient Records regulations: The Federal rules restrict any use of the information to criminally investigate or prosecute any alcohol or drug abuse patient.[facility] the event this information is protected by the Federal Confidentiality of Alcohol and Drug Abuse Patient Records regulations: The Federal rules restrict any use of the information to criminally investigate or prosecute any alcohol or drug abuse patient.[facility] the event this information is protected by the Federal Confidentiality of Alcohol and Drug Abuse Patient Records regulations: The Federal rules restrict any use of the information to criminally investigate or prosecute any alcohol or drug abuse patient.[facility] the event this information is protected by the Federal Confidentiality of Alcohol and Drug Abuse Patient Records regulations: The Federal rules restrict any use of the information to criminally investigate or prosecute any alcohol or drug abuse patient.[facility] the event this information is protected by the Federal Confidentiality of Alcohol and Drug Abuse Patient Records regulations: The Federal rules restrict any use of the information to criminally investigate or prosecute any alcohol or drug abuse patient.[facility] Reason for Visit (unrecogniz ed section and content) Reason Comments stress test instructions Reason Comments Yearly Exam Reason Comments Orders Reason Comments Imm/Inj Care Teams (unrecognized sec tion and content) Developer Advocate Relationship Specialty Start Date End Date Hiram Barber MD [address] [place], [place] [id number] PCP - General Internal Medicine 12/29/21 Developer Advocate Relationship Specialty Start Date End Date Hiram Barber MD [address] [place], [place] [id number] PCP - General Internal Medicine 12/29/21 Developer Advocate Relationship Specialty Start Date End Date Hiram Barber MD [address] [place], [place] [id number] PCP - General Internal Medicine 12/29/21 Developer Advocate Relationship Specialty Start Date End Date Hiram Barber MD [address] [place], [place] [id number] PCP - General Internal Medicine 12/29/21 (unrecognized [...] BE BASED ON THE PRIMARY CLINICAL RECORDS. [employer] [facility]. provides no warranty or guarantee of the accuracy or completeness of information in this document.
--- NOTE | 2023-09-08 22:20 | RAD_ITS ---
STUDY: X-RAY - ABDOMEN/PELVIS REASON FOR EXAM: Male, 53 years old. NG placement -- KUB with both diaphragms for NG/OG Verification TECHNIQUE: Single AP view of the abdomen / pelvis. COMPARISON: None. FINDINGS: Nasogastric tube with the tip in the left upper quadrant likely in the body of the stomach. There are dilated loops of the small intestine with a non-distended colon consistent with a small bowel obstruction. The visualized liver, spleen and kidneys are grossly normal in size and morphology. Normal soft tissue structures. Normal visualized osseous structures. RAD/Abdomen Single View (Portable) IMPRESSION: 1. Nasogastric tube with the tip in the left upper quadrant, likely in the body of stomach. 2. Mild small bowel obstruction. Electronically Signed: Erwin Hardy MD at 22:55 EST ,
[2023-09-08 22:27] VITALS: BP 162/100; RESP 20; O2SAT 92
[2023-09-08 22:31] VITALS: BP 188/95; PULSE 111; RESP 20; TEMP 37.1; O2SAT 93; BMI 33.5
[2023-09-08] MEDS: Cefotetan 2 GM in 0.9% Normal Saline (100mL MB+) 100 ML IV (23:07)
[2023-09-08] MEDS: Bupivacaine Mpf 0.5% 30 ML VIAL (23:41)
--- NOTE | 2023-09-08 23:50 | PCM.OPRPT ---
Report of Operation Date of Procedure: 09/08/23 Pre-Operative Diagnosis: Incarcerated hernia causing bowel obstruction Post-Operative Diagnosis: Same Surgery/Procedure Performed:: Wound exploration with closure of fascia Type of Anesthesia: General/Regional Estimated Blood Loss (mL): 5 Description of Procedure: The patient was brought back to the operating room and general anesthesia was induced. The abdomen was prepped and draped in usual sterile fashion. The prior midline incision was opened using a scalpel there was a loop of small bowel within the fascial opening. The small bowel was pink and soft and did not appear gangrenous or ischemic. It was reduced. It reduced easily. The bowel was then inspected and there was no sign of ischemia. Next the fascia was reapproximated using interrupted 0 Vicryl sutures. Subcutaneous tissue was irrigated and suctioned dry. Local anesthetic was injected. The skin was closed with interrupted 4-0 Monocryl sutures. Steri-Strips and bandages were applied. Patient was taken to PACU in stable condition with the NG in place. Admit VTE Documentation VTE Mechan Device Prophylaxis: SCD's
[2023-09-08 23:58] VITALS: BP 122/81; BP 188/95; PULSE 88; RESP 16; TEMP 37; O2SAT 92
[2023-09-09] VITALS (8 sets, daily range): BP systolic 114–188; BP diastolic 65–95; PULSE 80–91; RESP 16–18; TEMP 36.4–37.6; O2SAT 93–94; BMI 33.0
[2023-09-09] MEDS: 0.9% Normal Saline (1000mL) 1,000 ML 100 ML IV (01:06)
[2023-09-09] MEDS: 0.9% Saline Lock 10 ML Syringe IV (05:20)
[2023-09-09] MEDS: Ketorolac 15 MG/ML Vial IV (05:20)
--- OUTSIDE RECORDS SUMMARY | 2023-09-09 06:55 | XMS RPT_ITS | CCD ---
Author Name Unknown Address [address] [place] [address] Organization [facility] Care Team Providers Care Case Management Social Worker Name Role Phone Unavailable Primary Care Provider UnavailHiram Bean MD Primary Care Provider [phone] Hiram Barber MD Primary Care Provider [phone] HIRAM BARBER Primary Care Unavailable HIRAM BARBER [...] 176.8 cm Hiram Barber MD Work Phone: [facility] 12-01-2022 15:23-0400 Body weight 103.42 kg Hiram Barber MD Work Phone: [facility] 12-01-2022 15:23-0400 Diastolic blood pressure 72 mm[Hg] Hiram Barber MD Work Phone: [facility] 12-01-2022 15:23-0400 Heart rate 80 /min Hiram Barber MD Work Phone: [facility] 12-01-2022 15:23-0400 Respiratory rate 16 /min Hiram Barber MD Work Phone: [facility] 12-01-2022 15:23-0400 Systolic blood pressure 126 mm[Hg] Hiram Barber MD Work Phone: [facility] 12-01-2021 15:37-0400 Body temperature 97.59 [degF] Hiram Barber MD Work Phone: [facility] 12-01-2021 15:37-0400 Body weight 97.98 kg Hiram Barber MD Work Phone: [facility] 12-01-2021 15:37-0400 Diastolic blood pressure 80 mm[Hg] Hiram Barber MD Work Phone: [facility] 12-01-2021 15:37-0400 Heart rate 68 /min Hiram Barber MD Work Phone: [facility] 12-01-2021 15:37-0400 Respiratory rate 18 /min Hiram Barber MD Work Phone: [facility] 12-01-2021 15:37-0400 Systolic blood pressure 124 mm[Hg] Hiram Barber MD Work Phone: [facility] Encounters Encounter Date Encounter Type Care Provider Facility Start: 06-20-2023 End: 06-20-2023 ambulatory HIRAM BARBER Facility:[facility] Start: 06-20-2023 End: 06-20-2023 Nursing evaluation of patient and report Mi Nurse Work Phone: [facility] Procedures Date Procedure Procedure Detail Performing Clinician Start: 12-30-2022 Lipid 1996 panel - S margaret or Plasma Lindsey Older LANDSCAPE CONTRACTOR.COMPRESSOR REPAIRER Work Phone: Start: 12-01-2021 Adult depression screening assessment Hiram Barber MD Work Phone: Start: 11-19-2021 BMP - EXTERNAL [facility]cf Prov ider Plan of Treatment Date Care Activity Detail Author Start: 12-01-2032 Urine microalbumin profile [facility] Start: 12-31-2027 Lipid 1996 panel - S margaret or Plasma Lipid Screening [facility] Start: 12-30-2025 Diabetes Screening Diabetes Screenin g [facility] Start: 12-16-2024 COLOGUARD (FIT-DNA) COLOGUARD (FIT-D NA) [facility] Start: 12-16-2024 COLORECTAL CANCER SCREENING COLORECTAL CANCER SCREENING [facility] Start: 11-19-2024 DIABETES SCREEN DIABETES SCREEN [facility] Start: 06-03-2023 Hepatitis B Vaccine (3 of 3 - 19+ 3-dose series) Hepatitis B Vaccine (3 of 3 - 19+ 3-dose series) [facility] Start: 05-12-2023 Influenza vaccination C [facility] Start: 03-10-2023 Influenza vaccination INFLUENZA (#1) [facility] Immunizations Immunization Date Immunization Notes Care Provider Fa cility 06-20-2023 hepatitis B vaccine, adult dosage Mi Nurse Work Phone: [facility] Work Phone: 01-02-2023 hepatitis B vaccine, adult dosage Lindsey Older LANDSCAPE CONTRACTOR.COMPRESSOR REPAIRER Work Phone: [facility] Work Phone: 12-01-2022 hepatitis B vaccine, adult dosage Hiram Barber MD Work Phone: [facility] Work Phone: 12-01-2022 tetanus toxoid, redu jacqui diphtheria toxoid, and acellular pertussis vaccine, adsorbed Hiram Barber MD Work Phone: [facility] Work Phone: 12-01-2022 hepatitis B vaccine, unspecified formulation Hiram Barber MD Work Phone: [facility] 03-02-2010 tetanus toxoid, redu jacqui diphtheria toxoid, and acellular pertussis vaccine, adsorbed Hiram Barber MD Work Phone: [facility] Work Phone: Payers Date Payer Category Payer Unknown MMO MMO [employer] [id number] 2019-Present [phone] [address] [place] [id number] PPO [id number] 2019 Unknown MMO MMO [employer] PPO [id number] 2019-Present [phone] [address] [place] [address] PPO [id number] 2019 Unknown [id number] Social History Date Type Detail Facility Start: 04-18-2011 End: 12-01-2022 Tobacco smoking status NHIS Never smoked tobacco [facility] Work Phone: Start: 04-18-2011 Tobacco use and exposure Smoke less tobacco non-user [facility] Work Phone: History of tobacco use Snuff User [facility] Work Phone: Start: 12-01-2021 End: 12-01-2022 Alcohol intake Current drinker of alcohol (finding) [facility] Start: 12-01-2021 End: 11-30-2022 History SDOH Alcohol Frequency 2 [facility] Start: 03-18-2020 End: 12-01-2021 History SDOH Alcohol Std Drinks 1 [facility] Start: 12-01-2021 History SDOH Alcohol Comment rare wine [facility] Start: 03-18-2020 End: 11-30-2022 History SDOH Social Connections Get Together 3 [facility] Start: 03-19-2020 History SDOH Financial 5 [facility] Start: 03-18-2020 Education 21 [facility] Start: 01-20-2014 Tobacco Comment remote snuff u se- 20 years ago. [facility] Start: 1970 Sex Assigned At Not on file C [facility] Start: 11-21-2021 End: 12-01-2021 Exposure to SARS-CoV-2 (event) Not sure [facility] Work Phone: Start: 12-01-2022 Tobacco use and exposure Forme r smokeless tobacco user [facility] Work Phone: Start: 11-30-2022 History SDOH Alcohol Std Drinks 98 [facility] Start: 12-01-2022 Tobacco Comment remote snuff u se- 27 years ago. [facility] Start: 11-30-2022 End: 06-20-2023 History of Social function [facility] Start: 11-30-2022 End: 06-20-2023 Social connection and isolation panel [facility] In a typical week, h ow many times do you talk on the telephone with family, friends, or neighbors? Patient refused [facility] Do you belong to any clubs or organizations such as caodaism groups, unions, fraternal or athletic groups, or school groups? Yes [facility] How often to you hav e a drink containing alcohol? Monthly or less [facility] How often do you hav e 6 or more drinks on 1 occasion? Never [facility] Do you feel stress - tense, restless, nervous, or anxious, or unable to sleep at night because your mind is troubled all the time - these days [OSQ] Only a little [facility] (I/We) worried wheth er (my/our) food would run out before (I/we) got money to buy more. DK or Refused [facility] In the past 12 month s, was there a time when you were not able to pay the mortgage or rent on time? No [facility] Medical Equipment Procedure Code Equipment Code Equipment Origin al Text Equipment Identifier Dates Mesh Srg Pariete x 6cm Mark Rnd - [id number] Start: 01-28-2014 Clinical Notes 08-19-2013 to 06-20-2023 Maddie gN LPN - 06/20/2023 3:48 PM EDTTelephone Encounter - Maddie Ng LPN - 05/26/2023 2:33 PM EDTTelephone Encounter - Maddie Ng LPN - 12/19/2022 11:11 AM EDTPatient Instructions Note Date & Type Note Facility 06-20-2023 Note HNO ID: [id number] Author: Maddie Ng LPN Service: ? Author Type: ? Type: Progress Notes Filed: 06/20/2023 3:49 PM Note Text: Patient presents for Hepatitis B vaccine. Denies any problems at this time. Tolerated injection well. Maddie Ng LPN [facility] 06-20-2023 History of Presen t illness Narrative Patient presents for Hepatitis B vaccine. Denies any problems at this time. Tolerated injection well. Maddie Ng LPN documented in this encounter [facility] 05-26-2023 Miscellaneous Notes Formattin g of this note might be different from the original. Patient scheduled for nurse visit 06/05/23 to receive Hepatitis B vaccine. Please place order at this time. Maddie Ng LPN documented in this encounter [facility] 01-02-2023 Note HNO ID: [id number] Author: Maddie Ng LPN Service: ? Author Type: ? Type: Progress Notes Filed: 01/02/2023 3:08 PM Note Text: Patient presents for Hepatitis B vaccine. Denies any problems at this time. Tolerated injection well. Maddie Ng LPN [facility] 12-19-2022 Miscellaneous Notes Formattin g of this note might be different from the original. Patient scheduled for nurse visit 01/02/23 to receive Hepatitis B vaccine. Please place order at this time. Maddie Ng LPN documented in this encounter [facility] 12-01-2022 Note HNO ID: [id number] Author: Hiram Barber MD Service: ? Author Type: Physician Type: Progress Notes Filed: 12/01/2022 4:08 PM Note Text: This note was created using ThreatMetrixriter. Subjective Patient presents with: Yearly Exam Noa [...] at this time. - Patient was counseled [id number] by myself (the billing provider) for the [...] YR (ENGERIX-B, RECOMBIVAX HB) Hiram Barber MD [facility] 12-01-2022 Instructions Hiram Barber MD - 12/01/2022 3:58 PM EDT Moderate exercise (like a brisk walk) 30 minutes 5 or more times a week. Low carbohydrate diet. Portion control for weight loss. Fasting labs soon. documented in this encounter [facility] 12-01-2022 History of Presen t illness Narrative This note was created using [employer]. Subjective Patient presents with: Yearly Exam Noa [...] at this time. - Patient was counseled [id number] by myself (the billing provider) for the [...] Hiram Barber MD documented in this encounter [facility] 01-19-2022 Miscellaneous Notes Call to pt LVM [...] floor at Radiology: [address]; [place] [address] *This stress test will appear as 3 appointments on your schedule. You may get multiple reminder calls, but please arrive at the earliest scheduled appointment. * If you need to cancel or reschedule this test or have any questions regarding this test, please call [phone]. documented in this encounter [facility] 12-01-2021 Instructions Hiram Barber MD - 12/01/2021 [...] 2) Never done documented in this encounter [facility] 12-01-2021 History of Presen t illness Narrative [...] Hiram Barber MD documented in this encounter [facility] documented as of this encounter (statuses as of 12/02/2021) [facility] History of Past illness Narrative* Problem Noted Date Resolved Date Left inguinal hernia 08/19/2013 12/01/2021 Fatigue 05/20/2010 12/01/2021 documented as of this encounter (statuses as of 01/19/2022) [facility] History of Past illness Narrative* Problem Noted Date Resolved Date Left inguinal hernia 08/19/2013 12/01/2021 Fatigue 05/20/2010 12/01/2021 Migraine, unspecified, witho ut mention of intractable migraine without mention of status migrainosus 11/04/2005 023 documented as of this encounter (statuses as of 12/01/2022) [facility] History of Past illness Narrative* Problem Noted Date Resolved Date Left inguinal hernia 08/19/2013 12/01/2021 Fatigue 05/20/2010 12/01/2021 Migraine, unspecified, witho ut mention of intractable migraine without mention of status migrainosus 11/04/2005 023 documented as of this encounter (statuses as of 12/22/2022) [facility] History of Past illness Narrative* Problem Noted Date Diagnosed Date Resolved Date Left inguinal hernia 08/19/2013 022 Fatigue 05/20/2010 12/01/2021 Migraine, unspecified, witho ut mention of intractable migraine without mention of status migrainosus 11/04/2005 12/01/2022 documented as of this encounter (statuses as of 05/26/2023) [facility] History of Past illness Narrative* Problem Noted Date Diagnosed Date Resolved Date Left inguinal hernia 08/19/2013 022 Fatigue 05/20/2010 12/01/2021 Migraine, unspecified, witho ut mention of intractable migraine without mention of status migrainosus 11/04/2005 12/01/2022 documented as of this encounter (statuses as of 06/21/2023) [facility] note* Diagnosis Routine medical exam- Primary Routine general medical examination at a health care facility Obesity, Class I, BMI 30-34.9 Obesity, unspecified Chest pain, unspecified type Screening for prostate cancer Special screening for malignant neoplasm of prostate Screening for colon cancer Special screening for malignant neoplasms, colon documented in this encounter [facility] note* Diagnosis Routine medical exam- Primary Routine general medical examination at a health care facility Obesity, Class I, BMI 30-34.9 Obesity, unspecified Need for vaccination Need for prophylactic vaccination and inoculation against unspecified single disease documented in this encounter [facility] note* Diagnosis Need for vaccination- Primary Need for prophylactic vaccination and inoculation against unspecified single disease [facility] Outpatient Procedure (Routine) - Pending Review Specialty Diagnoses / Procedures Referred By Kyler avina Ref[facility] To [facility] Diagnoses Chest pain, unspecified type Procedures STRESS ECHO TREADMILL ECHO TTHRC R-T 2D W/WO M-MODE COMPLETE REST&ST Hiram Barber MD [address] [place] [address] [facility] [address] [address] Referral ID Status Reason Start Date Expiration Date Visits Requested Visits Authorized [id number] Pending Review Auto-Generat ed Referral 12/01/2021 12/01/2022 1 1 [facility] Summary Purpose Family History No Family History [...] or prosecute any alcohol or drug abuse patient.[facility] the event this information is protected by the Federal Confidentiality of Alcohol and Drug Abuse Patient Records regulations: The Federal rules restrict any use of the information to criminally investigate or prosecute any alcohol or drug abuse patient.[facility] the event this information is protected by the Federal Confidentiality of Alcohol and Drug Abuse Patient Records regulations: The Federal rules restrict any use of the information to criminally investigate or prosecute any alcohol or drug abuse patient.[facility] the event this information is protected by the Federal Confidentiality of Alcohol and Drug Abuse Patient Records regulations: The Federal rules restrict any use of the information to criminally investigate or prosecute any alcohol or drug abuse patient.[facility] the event this information is protected by the Federal Confidentiality of Alcohol and Drug Abuse Patient Records regulations: The Federal rules restrict any use of the information to criminally investigate or prosecute any alcohol or drug abuse patient.[facility] the event this information is protected by the Federal Confidentiality of Alcohol and Drug Abuse Patient Records regulations: The Federal rules restrict any use of the information to criminally investigate or prosecute any alcohol or drug abuse patient.[facility] Reason for Visit (unrecogniz ed section and content) Reason Comments stress test instructions Reason Comments Yearly Exam Reason Comments Orders Reason Comments Imm/Inj Care Teams (unrecognized sec tion and content) Case Management Social Worker Relationship Specialty Start Date End Date Hiram Barber MD [address] [place], [place] [address] PCP - General Internal Medicine 12/29/21 Case Management Social Worker Relationship Specialty Start Date End Date Hiram Barber MD [address] [place], [place] [id number] PCP - General Internal Medicine 12/29/21 Case Management Social Worker Relationship Specialty Start Date End Date Hiram Barber MD [address] [place], [place] [address] PCP - General Internal Medicine 12/29/21 Case Management Social Worker Relationship Specialty Start Date End Date Hiram Barber MD [address] [place], [place] [id number] PCP - General Internal Medicine 12/29/21 (unrecognized [...] BE BASED ON THE PRIMARY CLINICAL RECORDS. [employer] [facility]. provides no warranty or guarantee of the accuracy or completeness of information in this document.
[2023-09-09 06:57] LABS: Absolute Lymphocyte Count 0.67 X10^3/uL (0.83-4.51); Absolute Neutrophil Count 8.7 X10^3/uL (2.0-7.7); Basophil# 0.01 X10^3/uL; Basophil% 0.1 % (0-1); Eosinophil# 0.02 X10^3/uL; Eosinophils% 0.2 % (0-5); Hematocrit 40.5 % (40-54); Hemoglobin 13.7 g/dL (13.0-16.5); Lymphocyte # 0.67 X10^3/ul (0.83-4.51); Lymphocyte % 6.5 % (19-41); Mean Corp Hgb Conc 33.8 g/dL (32-36); Mean Corpuscular Hgb 31.3 pg (27.0-32.0); Mean Corpuscular Volume 92.5 fL (80-94); Mean Platelet Vol. 10.6 fl (6.2-12.0); Monocyte# 0.94 X10^3/uL; Monocyte% 9.1 % (0-10); NRBC Flagged by Analyzer 0 % (0-5); Neutrophil # 8.66 X10^3/uL (2.7-7.7); Neutrophil % 83.6 % (47-70); Platelet Count 212 K/mm3 (150-450); RBC Distribution Width CV 12.6 % (11.6-14.6); Red Blood Count 4.38 M/mm3 (4.6-6.2); White Blood Count 10.4 K/mm3 (4.4-11.0)
[2023-09-09 07:12] LABS: Anion Gap 5 (5-15); BUN 14 mg/dL (7-18); Calcium,Total 8.2 mg/dL (8.5-10.1); Chloride 109 mmol/L (98-107); Creatinine, Serum 1.17 mg/dL (0.70-1.30); EST Glomerular Filtration Rate 69 mL/min (>60); Est Glom Filt Rate - Afr Amer 84 mL/min (>60); Estimated Creatinine Clearance 73.86 ml/min; Glucose 107 mg/dL (74-106); Potassium 3.4 mmol/L (3.5-5.1); Sodium Level 140 mmol/L (136-145)
--- NOTE | 2023-09-09 08:07 | PCM.PN.SRG ---
Subjective Subjective The patient has started passing flatus. He is not reporting any abdominal pain. He denies any nausea overnight. Objective Data Objective Data Vital Signs: Vital Signs Temp Pulse Resp BP Pulse Ox O2 Del Method O2 Flow Rate 99.6 F H 84 18 128/79 H 93 Room Air 2 09/09/23 04:29 09/09/23 04:29 09/09/23 04:29 09/09/23 04:29 09/09/23 04:29 09/09/23 04:29 09/09/23 00:12 Oxygen Flow Rate (L/min) 2 Oxygen Delivery Method Room Air Weight: 224 lb Body Mass Index (BMI) 33.0 Intake & Output: Intake and Output for Last 24 Hours 09/07/23 09/08/23 09/09/23 23:59 23:59 23:59 Intake Total 1100 / 1100 110 / 110 Output Total 600 / 600 Balance 1100 / 1100 -490 / -490 Lab / Micro Data 09/09/23 06:30 09/09/23 06:30 Labs: Laboratory Results - last 24 hr 09/08/23 19:30: WBC 11.9 H, RBC 4.90, Hgb 15.3, Hct 45.0, MCV 91.8, MCH 31.2, MCHC 34.0, RDW Std Deviation 42.0, RDW Coeff of Jelena 12.5, Plt Count 226, MPV 10.4, Immature Gran % (Auto) 0.400, Neut % (Auto) 89.0 H, Lymph % (Auto) 4.9 L, Dougherty % (Auto) 5.6, Eos % (Auto) 0.0, Baso % (Auto) 0.1, Absolute Neuts (auto) 10.6 H, Absolute Lymphs (auto) 0.58 L, Nucleated RBC % 0, Differential Comment SEE COMMENT, Platelet Estimate ADEQUATE, RBC Morphology N CHROM, Anisocytosis RARE, Macrocytosis RARE, Sodium 136, Potassium 3.6, Chloride 102, Carbon Dioxide 29.0, Anion Gap 5, BUN 15, Creatinine 1.10, Estim Creat Clear Calc 78.56, Est GFR (MDRD) Af Amer 90, Est GFR (MDRD) Non-Af 75, BUN/Creatinine Ratio 13.6, Glucose 115 H, Lactic Acid 1.2, Calcium 9.3, Total Bilirubin 1.20 H, Direct Bilirubin 0.32 H, AST 70 H, ALT 112 H, Alkaline Phosphatase 87, Total Protein 6.9, Albumin 3.4, Globulin 3.5, Lipase 24 09/09/23 06:30: WBC 10.4, RBC 4.38 L, Hgb 13.7, Hct 40.5, MCV 92.5, MCH 31.3, MCHC 33.8, RDW Std Deviation 43.0, RDW Coeff of Jelena 12.6, Plt Count 212, MPV 10.6, Immature Gran % (Auto) 0.500, Neut % (Auto) 83.6 H, Lymph % (Auto) 6.5 L, Dougherty % (Auto) 9.1, Eos % (Auto) 0.2, Baso % (Auto) 0.1, Absolute Neuts (auto) 8.7 H, Absolute Lymphs (auto) 0.67 L, Nucleated RBC % 0, Sodium 140, Potassium 3.4 L, Chloride 109 H, Carbon Dioxide 26.0, Anion Gap 5, BUN 14, Creatinine 1.17, Estim Creat Clear Calc 73.86, Est GFR (MDRD) Af Amer 84, Est GFR (MDRD) Non-Af 69, BUN/Creatinine Ratio 12.0, Glucose 107 H, Calcium 8.2 L Radiography Diagnostic Testing: Radiology Impression Abdomen/Pelvis CT 09/08/23 19:49 IMPRESSION: 1. Small umbilical hernia with incarceration of a loop of small bowel producing moderate bowel obstruction with dilatation of the jejunum but no evidence of perforation. 2. Interval cholecystectomy without postoperative fluid collection. 3. Small amount of free fluid in the pelvis. 4. Sigmoid diverticulosis without diverticulitis. Electronically Signed: Erwin Hardy MD at 21:06 EST , ADDENDUM: 09/08/232140 IMPRESSION: 1. Small umbilical hernia with incarceration of a loop of small bowel producing moderate bowel obstruction with dilatation of the jejunum but no evidence of perforation. 2. Interval cholecystectomy without postoperative fluid collection. 3. Small amount of free fluid in the pelvis. 4. Sigmoid diverticulosis without diverticulitis. N.B. : The above Results were Read Back by Erwin Hardy MD to Oswaldo Walker DO, and understanding confirmed on 09/08/2023 21:35:03 (ET). Electronically Signed: Erwin Hardy MD at 21:06 EST , KUB X-Ray 09/08/23 22:20 IMPRESSION: 1. Nasogastric tube with the tip in the left upper quadrant, likely in the body of stomach. 2. Mild small bowel obstruction. Electronically Signed: Erwin Hardy MD at 22:55 EST , Physical Exam Const oriented x3 and no apparent distress Resp normal respiratory effort GI soft to palpation and non-tender Assessment & Plan Assessment/Plan (1) Incarcerated hernia: PLAN: Patient had dehiscence of his fascial incision causing incarcerated hernia and bowel obstruction. I taken to surgery yesterday and reduced the hernia and closed his fascia. He is doing well today. I will remove his NG and advance diet as tolerated. If he is tolerating a diet I will discharge him home later today. Austen Glynn MD Pager: [facility] [address] [place] [address], [address] [place] [address] Office:
--- NOTE | 2023-09-09 08:08 | DCINST_ITS ---
Discharge Instructions Diet Discharge Diet: Light diet - advance as tolerated Activity Discharge Activity: May Shower Lifting Restrictions: 15 lbs for 4 weeks Dressing / Incision Call your doctor if your incision/area has: Continuous Slow Oozing, Sudden Increased Bleeding, Increased Pain/ Swelling, Increased Redness, Foul Smelling Discharge and Swelling at the incision site Call your doctor if you observe: Fever of 101 or Higher and Inability to have a bowel movement Cleanse incision/area with: Soap & Water Follow Up Care Please Follow Up With: Austen Glynn MD When: Please call to schedule 2 week follow up appointment. [phone] Test Results: Test results from this visit will be discussed in further detail at your follow- up appointment, if applicable. Discharge Plan Admission Admit Date/Time: 09/08/23 23:53 Attending Provider: Austen Glynn Primary Care Provider: Care ,Lara Primary Discharge Orders/Prescriptions Prescriptions: Continued pantoprazole 40 mg tablet,delayed release (DR/EC) 40 mg PO DAILY oxycodone-acetaminophen 5-325 mg tablet 1 - 2 tab PO Q6H PRN (Reason: pain) 3 Days Qty: 14 0RF Referrals / Follow Up: Care Physician,No Primary [Primary Care Provider] - Disposition Disposition (needs filled in before D/C Order can be placed): Home, Self Care
--- NOTE | 2023-09-09 13:00 | CASEMGMT ---
RN CHRISTIN Face to Face with patient for initial transition planning/care coordination assessment. RN CM introduced self and role at [facility]. Patient lying in bed, alert and oriented, and daughter at bedside. Patient willing to participate in assessment and is able to answer all questions appropriately. Care providers, pharmacy, and demographics verified. Patient wishes to discharge home, denies need for home health at this time. Patient states he has no further needs or concerns at this time. CM to follow for discharge planning needs that may arise. PCP: Patric Specialists: none Preferred Pharmacy: [facility] Retail Insurance: MMO Prescription Benefit: yes Living Will/HPOA: yes, Amanda Green LNOK: , daughter Living Arrangements: Patient lives with in a 1.5 story home with bed and bath on first floor, 2 steps to enter the home. Patient is independent at home Transportation: self, , daughter DME/HHC: Patient has crutches at home. No previous HHC or SNF. Disposition Plan: Patient to discharge home with family support and follow-up plans in place. Jayde HADLEY, RN, CM
== END 2023-09-09 14:20 | disposition home or self-care (01) | DRG 908 ==
LOC: ED 19:46 → SDC 22:17 → MS3 22:40
PROVIDERS: Admitting Provider Surgery; Emergency Provider Emergency Medicine; Referring Provider Emergency Medicine; Visit Provider Surgery
PROC: 0WQF4ZZ Repair Abdominal Wall, Percutaneous Endoscopic Approach (ICD-10-PCS; CPT 44202; principal; 2023-09-08 23:00)
DX: T81.32XA Disruption of internal operation (surgical) wound, not elsewhere classified, initial encounter (principal); K43.0 Incisional hernia with obstruction, without gangrene; Z90.49 Acquired absence of other specified parts of digestive tract; Y83.6 Removal of other organ (partial) (total) as the cause of abnormal reaction of the patient, or of later complication, without mention of misadventure at the time of the procedure
CPT/HCPCS: 36415; 74018; 74177; 80048; 80076; 83605; 83690; 85025; 93005; 94668; 99252; 99283; J7030; Q9967; A4216; G0463; J2405